=== PATIENT | female | born 1970 | race Caucasian/White ===

== ENCOUNTER 2018-10-18 09:12 | Emergency (ER) | payer BC ==
--- NOTE | 2018-10-18 09:48 | EDM.PDOC ---
ED HPI GENERAL MEDICAL PROBLEM - General Chief Complaint: Skin Complaint Stated Complaint: RASH Time Seen by Provider: 10/18/18 09:39 - History of Present Illness INITIAL COMMENTS - FREE TEXT/NARRATIVE: HISTORY AND PHYSICAL: History of present illness: Patient's 48-year-old white female presents with a concern of rash to her left thoraco abdominal area. She denies other concern Review of systems: As per history of present illness and below otherwise all systems reviewed and negative. Past medical history: As per history of present illness and as reviewed below otherwise noncontributory. Surgical history: As per history of present illness and as reviewed below otherwise noncontributory. Social history: No reported history of drug or alcohol abuse. Family history: As per history of present illness and as reviewed below otherwise noncontributory. Physical exam: HEENT: Atraumatic, normocephalic, pupils reactive, negative for conjunctival pallor or scleral icterus, mucous membranes moist, throat clear, neck supple, nontender, trachea midline. Lungs: Clear to auscultation, breath sounds equal bilaterally, chest nontender. Heart: S1S2, regular, negative for clicks, rubs, or JVD. Abdomen: Soft, nondistended, nontender. Negative for masses or hepatosplenomegaly. Negative for costovertebral tenderness. Pelvis: Stable nontender. Genitourinary: Deferred. Rectal: Deferred. Extremities: Atraumatic, negative for cords or calf pain. Neurovascular unremarkable. Neuro: Awake, alert, oriented. Cranial nerves II through XII unremarkable. Cerebellum unremarkable. Motor and sensory unremarkable throughout. Exam nonfocal. Skin: Patient has a maculopapular type rash in a dermatomal distribution in the left thoracoabdominal region without crossing of the midline consistent with shingles Diagnostics: None Therapeutics: None Impression: 1 herpes zoster Definitive disposition and diagnosis as appropriate pending reevaluation and review of above. 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 Musculoskeletal History: Reports: None Neurological History: Reports: None Psychiatric History: Reports: None Endocrine/Metabolic History: Reports: None Hematologic History: Reports: None Immunologic History: Reports: None Oncologic (Cancer) History: Reports: None Dermatologic History: Reports: None - Infectious Disease History Infectious Disease History: Reports: Chicken Pox - Past Surgical History Head Surgeries/Procedures: Reports: None Cardiovascular Surgical History: Reports: None Social & Family History - Family History Family Medical History: Noncontributory - Tobacco Use Smoking Status *Q: Never Smoker - Caffeine Use Caffeine Use: Reports: Coffee - Recreational Drug Use Recreational Drug Use: No ED ROS GENERAL - Review of Systems Review Of Systems: ROS reveals no pertinent complaints other than HPI. ED EXAM, SKIN/RASH Exam: See Below (See dictation) Course - Vital Signs Last Recorded V/S: Last Vital Signs Temp 36.6 C 10/18/18 09:41 Pulse 90 10/18/18 09:41 Resp 16 10/18/18 09:41 BP 111/71 10/18/18 09:41 Pulse Ox 95 10/18/18 09:41 Departure - Departure Time of Disposition: 09:47 Disposition: Home, Self-Care 01 Condition: Good Clinical Impression: Herpes zoster - Discharge Information Referrals: PCP,None [Primary Care Provider] - Additional Instructions: The following information is given to patients seen in the emergency department who are being discharged to home. This information is to outline your options for follow-up care. We provide all patients seen in our emergency department with a follow-up referral. The need for follow-up, as well as the timing and circumstances, are variable depending upon the specifics of your emergency department visit. If you don't have a primary care physician on staff, we will provide you with a referral. We always advise you to contact your personal physician following an emergency department visit to inform them of the circumstance of the visit and for follow-up with them and/or the need for any referrals to a consulting specialist. The emergency department will also refer you to a specialist when appropriate. This referral assures that you have the opportunity for followup care with a specialist. All of these measure are taken in an effort to provide you with optimal care, which includes your followup. Under all circumstances we always encourage you to contact your private physician who remains a resource for coordinating your care. When calling for followup care, please make the office aware that this follow-up is from your recent emergency room visit. If for any reason you are refused follow-up, please contact the [facility] emergency department at and asked to speak to the emergency department charge nurse. Valtrex hydrocodone as prescribed. Her primary medical doctor as discussed infectious precautions as discussed return as needed as discussed
== END 2018-10-18 10:15 | disposition home or self-care (01) ==
LOC: MW.ED 09:12
DX: B02.9 Zoster without complications (principal)
CPT/HCPCS: 99283

== ENCOUNTER 2019-05-24 20:59 | Observation (INO) | payer BC ==
--- NOTE | 2019-05-24 21:03 | EDM.PDOC ---
ED HPI GENERAL MEDICAL PROBLEM - General Chief Complaint: Drug or Alcohol Abuse Stated Complaint: OVERDOSE Time Seen by Provider: 05/24/19 21:03 Source of Information: Reports: Patient History Limitations: Reports: No Limitations - History of Present Illness INITIAL COMMENTS - FREE TEXT/NARRATIVE: HISTORY AND PHYSICAL: History of present illness: Patient is a 49-year-old female presents via the EMS for overdose. Per police, monty called the EMS. Officer states that patient had gotten in an argument with her fiaudrey. Monty heard her in the bathroom opening pill bottles. Patient did admit to EMS and office at scene that she had taken a bunch of olanzapine. Patient reportedly took about 32 of her olanzapine and and uncertain amount of lorazepam. Patient had also been drinking, approximately 5 12-oz cans of coors light. Per EMS patient walked to bus at scene but since has become more drowsy. Patient on my arrival was drowsy and slurring her speech initially she became more drowsy but did respond to sternal rub. Review of systems: As per history of present illness and below otherwise all systems reviewed and negative. Past medical history: As per history of present illness and as reviewed below otherwise noncontributory. Surgical history: As per history of present illness and as reviewed below otherwise noncontributory. Social history: No reported history of drug or alcohol abuse. Family history: As per history of present illness and as reviewed below otherwise noncontributory. Physical exam: General: Patient sitting comfortably in no acute distress and nontoxic appearing HEENT: Atraumatic, normocephalic, pupils reactive, negative for conjunctival pallor or scleral icterus, mucous membranes moist, throat clear, neck supple, nontender, trachea midline. No meningeal signs. Lungs: Clear to auscultation, breath sounds equal bilaterally, chest nontender. Heart: S1S2, regular, negative for clicks, rubs, or overt murmur. Abdomen: Soft, nondistended, nontender. Negative for masses or hepatosplenomegaly. Negative for costovertebral tenderness. No rigidity, rebound , guarding. Pelvis: Stable nontender. Genitourinary: Deferred. Rectal: Deferred. Extremities: Atraumatic, negative for cords or calf pain. Neurovascular unremarkable. Neuro: Awake but drowsy. Cranial nerves II through XII unremarkable. Cerebellum unremarkable. Motor and sensory unremarkable throughout. Exam nonfocal. Notes: Discussed with poison control, recommended fluids and if she desats to consider opioid ingestion and give narcan if needed. Diagnostics: CBC, CMP, UDS, UA, EtOH, acetaminophen, salicylate chest x-ray, EKG Therapeutics: 1 L normal saline IV Prescriptions: Impression: Overdose, alcohol intoxication, AMS Plan: Discussed with Dr. Irvin, patient will be admitted to observation on ICU on telemetry Definitive disposition and diagnosis as appropriate pending reevaluation and review of above. 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 Musculoskeletal History: Reports: None Neurological History: Reports: None Psychiatric History: Reports: None Endocrine/Metabolic History: Reports: None Hematologic History: Reports: None Immunologic History: Reports: None Oncologic (Cancer) History: Reports: None Dermatologic History: Reports: None - Infectious Disease History Infectious Disease History: Reports: Chicken Pox - Past Surgical History Head Surgeries/Procedures: Reports: None Cardiovascular Surgical History: Reports: None Social & Family History - Family History Family Medical History: Noncontributory - Caffeine Use Caffeine Use: Reports: Coffee ED ROS GENERAL - Review of Systems Review Of Systems: ROS reveals no pertinent complaints other than HPI. - Physical Exam Exam: See Below (See dictation) Course - Vital Signs Last Recorded V/S: Last Vital Signs Temp 97.4 F 05/24/19 21:02 Pulse 111 H 05/24/19 21:55 Resp 14 05/24/19 21:55 BP 114/88 05/24/19 21:55 Pulse Ox 99 05/24/19 21:55 - Orders/Labs/Meds Orders: Active Orders 24 hr Category Date Time Status EKG Documentation Completion [RC] STAT Care 05/24/19 21:03 Active Sodium Chloride 0.9% [Normal Saline] 1,000 ml Med 05/24/19 21:20 Active IV STAT Medication Orders Sodium Chloride (Normal Saline) 1,000 mls @ 999 mls/hr IV STAT ONE Stop: 05/24/19 22:20 Last Admin: 05/24/19 21:49 Dose: 999 mls/hr Labs: Laboratory Tests 05/24/19 05/24/19 05/24/19 Range/Units 21:18 21:18 21:22 WBC 6.91 (4.0-11.0) K/uL RBC 4.60 (4.30-5.90) M/uL Hgb 13.9 (12.0-16.0) g/dL Hct 41.8 (36.0-46.0) % MCV 90.9 (80.0-98.0) fL MCH 30.2 (27.0-32.0) pg MCHC 33.3 (31.0-37.0) g/dL RDW Std Deviation 42.5 (28.0-62.0) fl RDW Coeff of Malini 13 (11.0-15.0) % Plt Count 311 (150-400) K/uL MPV 8.80 (7.40-12.00) fL Neut % (Auto) 54.2 (48.0-80.0) % Lymph % (Auto) 40.5 H (16.0-40.0) % [place] % (Auto) 4.8 (0.0-15.0) % Eos % (Auto) 0.4 (0.0-7.0) % Baso % (Auto) 0.1 (0.0-1.5) % Neut # (Auto) 3.7 (1.4-5.7) K/uL Lymph # (Auto) 2.8 H (0.6-2.4) K/uL [place] # (Auto) 0.3 (0.0-0.8) K/uL Eos # (Auto) 0.0 (0.0-0.7) K/uL Baso # (Auto) 0.0 (0.0-0.1) K/uL Nucleated RBC % 0.0 /100WBC Nucleated RBCs # 0 K/uL Sodium 145 (136-145) mmol/L Potassium 3.4 L (3.5-5.1) mmol/L Chloride 109 H (98-107) mmol/L Carbon Dioxide 20.7 L (21.0-32.0) mmol/L BUN 5 L (7.0-18.0) mg/dL Creatinine 0.7 (0.6-1.0) mg/dL Est Cr Clr Drug Dosing TNP Estimated GFR (MDRD) > 60.0 ml/min Glucose 111 H (74-106) mg/dL Calcium 8.4 L (8.5-10.1) mg/dL Magnesium 1.9 (1.8-2.4) mg/dL Total Bilirubin 0.1 L (0.2-1.0) mg/dL AST 17 (15-37) IU/L ALT 15 (14-63) IU/L Alkaline Phosphatase 104 (46-116) U/L Total Protein 6.6 (6.4-8.2) g/dL Albumin 3.5 (3.4-5.0) g/dL Globulin 3.1 (2.6-4.0) g/dL Albumin/Globulin Ratio 1.1 (0.9-1.6) TSH 3rd Generation 1.24 (0.36-3.74) uIU/mL Urine Color YELLOW Urine Appearance CLEAR Urine pH 5.5 (5.0-8.0) Ur Specific [place] <= 1.005 (1.001-1.035) Urine Protein NEGATIVE (NEGATIVE) mg/dL Urine Glucose (UA) NEGATIVE (NEGATIVE) mg/dL Urine Ketones NEGATIVE (NEGATIVE) mg/dL Urine Occult Blood TRACE-INTACT H (NEGATIVE) Urine Nitrite NEGATIVE (NEGATIVE) Urine Bilirubin NEGATIVE (NEGATIVE) Urine Urobilinogen 0.2 (<2.0) EU/dL Ur Leukocyte Esterase NEGATIVE (NEGATIVE) Urine RBC 0-1 (0-2/HPF) Urine WBC 0-2 (0-5/HPF) Ur Epithelial Cells MODERATE (NONE-FEW) Urine Bacteria FEW (NEGATIVE) Urine HCG, Qual (NEGATIVE) Salicylates 0.8 (0-20) mg/dL Urine Opiates Screen (NEGATIVE) Ur Oxycodone Screen (NEGATIVE) Urine Methadone Screen (NEGATIVE) Acetaminophen 92.6 ug/mL Ur Barbiturates Screen (NEGATIVE) Ur Phencyclidine Scrn (NEGATIVE) Ur Amphetamine Screen (NEGATIVE) U Methamphetamines Scrn (NEGATIVE) U Benzodiazepines Scrn (NEGATIVE) U Cocaine Metab Screen (NEGATIVE) U Marijuana (THC) Screen (NEGATIVE) Ethyl Alcohol 165 mg/dL 05/24/19 05/24/19 Range/Units 21:22 21:22 WBC (4.0-11.0) K/uL RBC (4.30-5.90) M/uL Hgb (12.0-16.0) g/dL Hct (36.0-46.0) % MCV (80.0-98.0) fL MCH (27.0-32.0) pg MCHC (31.0-37.0) g/dL RDW Std Deviation (28.0-62.0) fl RDW Coeff of Malini (11.0-15.0) % Plt Count (150-400) K/uL MPV (7.40-12.00) fL Neut % (Auto) (48.0-80.0) % Lymph % (Auto) (16.0-40.0) % [place] % (Auto) (0.0-15.0) % Eos % (Auto) (0.0-7.0) % Baso % (Auto) (0.0-1.5) % Neut # (Auto) (1.4-5.7) K/uL Lymph # (Auto) (0.6-2.4) K/uL [place] # (Auto) (0.0-0.8) K/uL Eos # (Auto) (0.0-0.7) K/uL Baso # (Auto) (0.0-0.1) K/uL Nucleated RBC % /100WBC Nucleated RBCs # K/uL Sodium (136-145) mmol/L Potassium (3.5-5.1) mmol/L Chloride (98-107) mmol/L Carbon Dioxide (21.0-32.0) mmol/L BUN (7.0-18.0) mg/dL Creatinine (0.6-1.0) mg/dL Est Cr Clr Drug Dosing Estimated GFR (MDRD) ml/min Glucose (74-106) mg/dL Calcium (8.5-10.1) mg/dL Magnesium (1.8-2.4) mg/dL Total Bilirubin (0.2-1.0) mg/dL AST (15-37) IU/L ALT (14-63) IU/L Alkaline Phosphatase (46-116) U/L Total Protein (6.4-8.2) g/dL Albumin (3.4-5.0) g/dL Globulin (2.6-4.0) g/dL Albumin/Globulin Ratio (0.9-1.6) TSH 3rd Generation (0.36-3.74) uIU/mL Urine Color Urine Appearance Urine pH (5.0-8.0) Ur Specific [place] (1.001-1.035) Urine Protein (NEGATIVE) mg/dL Urine Glucose (UA) (NEGATIVE) mg/dL Urine Ketones (NEGATIVE) mg/dL Urine Occult Blood (NEGATIVE) Urine Nitrite (NEGATIVE) Urine Bilirubin (NEGATIVE) Urine Urobilinogen (<2.0) EU/dL Ur Leukocyte Esterase (NEGATIVE) Urine RBC (0-2/HPF) Urine WBC (0-5/HPF) Ur Epithelial Cells (NONE-FEW) Urine Bacteria (NEGATIVE) Urine HCG, Qual NEGATIVE (NEGATIVE) Salicylates (0-20) mg/dL Urine Opiates Screen NEGATIVE (NEGATIVE) Ur Oxycodone Screen NEGATIVE (NEGATIVE) Urine Methadone Screen NEGATIVE (NEGATIVE) Acetaminophen ug/mL Ur Barbiturates Screen NEGATIVE (NEGATIVE) Ur Phencyclidine Scrn NEGATIVE (NEGATIVE) Ur Amphetamine Screen NEGATIVE (NEGATIVE) U Methamphetamines Scrn NEGATIVE (NEGATIVE) U Benzodiazepines Scrn NEGATIVE (NEGATIVE) U Cocaine Metab Screen NEGATIVE (NEGATIVE) U Marijuana (THC) Screen NEGATIVE (NEGATIVE) Ethyl Alcohol mg/dL Meds: Medications Generic Name Dose Route Start Last Admin Trade Name Freq PRN Reason Stop Dose Admin Sodium Chloride 1,000 mls @ 999 mls/hr 05/24/19 21:20 05/24/19 21:49 Normal Saline IV 05/24/19 22:20 999 mls/hr STAT ONE Administration Departure - Departure Time of Disposition: 22:07 Disposition: Refer to Observation Condition: Good Clinical Impression: Alcohol intoxication, Altered mental status, Overdose - Discharge Information Referrals: PCP,None [Primary Care Provider] - Forms: ED Department Discharge - My Orders Last 24 Hours: My Active Orders 05/24/19 21:03 EKG Documentation Completion [RC] STAT 05/24/19 21:20 Sodium Chloride 0.9% [Normal Saline] 1,000 ml IV STAT - Assessment/Plan Last 24 Hours: My Active Orders 05/24/19 21:03 EKG Documentation Completion [RC] STAT 05/24/19 21:20 Sodium Chloride 0.9% [Normal Saline] 1,000 ml IV STAT
[2019-05-24] MEDS ORDERED: Sodium Chloride 0.9% 1,000 ML IV ONE (21:20)
[2019-05-24 21:57] LABS: BLOOD UREA NITROGEN,BUN 5 mg/dL (7.0-18.0); CARBON DIOXIDE,CO2 20.7 mmol/L (21.0-32.0); CHLORIDE,CL 109 mmol/L (98-107); GLUCOSE RANDOM 111 mg/dL (74-106); POTASSIUM,K 3.4 mmol/L (3.5-5.1); SODIUM,NA 145 mmol/L (136-145)
[2019-05-24 21:58] LABS: ACETAMINOPHEN 92.6 ug/mL
--- NOTE | 2019-05-24 23:28 | PCM.HP.2 ---
H&P History of Present Illness - General Date of Service: 05/24/19 Admit Problem/Dx: Admission Diagnosis/Problem Admission Diagnosis/Problem Alcohol intoxication - History of Present Illness Initial Comments - Free Text/Narative: 49 yo female who was brought to ED by EMS for overdose. According to ER notes patient had an argument with fiance and afterwords took olanzapine and lorazepam as well as she had been drinking. PAtient is currently lethargic. She is moving in bed but not answering questions. 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 Musculoskeletal History: Reports: None Neurological History: Reports: None Psychiatric History: Reports: None Endocrine/Metabolic History: Reports: None Hematologic History: Reports: None Immunologic History: Reports: None Oncologic (Cancer) History: Reports: None Dermatologic History: Reports: None - Infectious Disease History Infectious Disease History: Reports: Chicken Pox - Past Surgical History Head Surgeries/Procedures: Reports: None Cardiovascular Surgical History: Reports: None Social & Family History - Family History Family Medical History: Noncontributory - Caffeine Use Caffeine Use: Reports: Coffee H&P Review of Systems - Review of Systems: Review Of Systems: Unable To Obtain Exam - Exam Exam: See Below - Vital Signs Vital Signs: Last Vital Signs Temp 36.3 C 05/24/19 21:02 Pulse 83 05/24/19 22:30 Resp 15 05/24/19 22:30 BP 102/63 05/24/19 22:30 Pulse Ox 97 05/24/19 22:30 - Exam General: Lethargic HEENT: Mucosa Moist & [place] Lungs: Clear to Auscultation, Normal Respiratory Effort Cardiovascular: Regular Rate, Regular Rhythm GI/Abdominal Exam: Soft, Non-Tender Extremities: Non-Tender, No Pedal Edema Skin: Warm, Dry, Intact - Patient Data Lab Results Last 24 hrs: Laboratory Results - last 24 hr 05/24/19 05/24/19 05/24/19 Range/Units 21:18 21:18 21:22 WBC 6.91 (4.0-11.0) K/uL RBC 4.60 (4.30-5.90) M/uL Hgb 13.9 (12.0-16.0) g/dL Hct 41.8 (36.0-46.0) % MCV 90.9 (80.0-98.0) fL MCH 30.2 (27.0-32.0) pg MCHC 33.3 (31.0-37.0) g/dL RDW Std Deviation 42.5 (28.0-62.0) fl RDW Coeff of Malini 13 (11.0-15.0) % Plt Count 311 (150-400) K/uL MPV 8.80 (7.40-12.00) fL Neut % (Auto) 54.2 (48.0-80.0) % Lymph % (Auto) 40.5 H (16.0-40.0) % [place] % (Auto) 4.8 (0.0-15.0) % Eos % (Auto) 0.4 (0.0-7.0) % Baso % (Auto) 0.1 (0.0-1.5) % Neut # (Auto) 3.7 (1.4-5.7) K/uL Lymph # (Auto) 2.8 H (0.6-2.4) K/uL [place] # (Auto) 0.3 (0.0-0.8) K/uL Eos # (Auto) 0.0 (0.0-0.7) K/uL Baso # (Auto) 0.0 (0.0-0.1) K/uL Nucleated RBC % 0.0 /100WBC Nucleated RBCs # 0 K/uL Sodium 145 (136-145) mmol/L Potassium 3.4 L (3.5-5.1) mmol/L Chloride 109 H (98-107) mmol/L Carbon Dioxide 20.7 L (21.0-32.0) mmol/L BUN 5 L (7.0-18.0) mg/dL Creatinine 0.7 (0.6-1.0) mg/dL Est Cr Clr Drug Dosing TNP Estimated GFR (MDRD) > 60.0 ml/min Glucose 111 H (74-106) mg/dL Calcium 8.4 L (8.5-10.1) mg/dL Magnesium 1.9 (1.8-2.4) mg/dL Total Bilirubin 0.1 L (0.2-1.0) mg/dL AST 17 (15-37) IU/L ALT 15 (14-63) IU/L Alkaline Phosphatase 104 (46-116) U/L Total Protein 6.6 (6.4-8.2) g/dL Albumin 3.5 (3.4-5.0) g/dL Globulin 3.1 (2.6-4.0) g/dL Albumin/Globulin Ratio 1.1 (0.9-1.6) TSH 3rd Generation 1.24 (0.36-3.74) uIU/mL Urine Color YELLOW Urine Appearance CLEAR Urine pH 5.5 (5.0-8.0) Ur Specific [place] <= 1.005 (1.001-1.035) Urine Protein NEGATIVE (NEGATIVE) mg/dL Urine Glucose (UA) NEGATIVE (NEGATIVE) mg/dL Urine Ketones NEGATIVE (NEGATIVE) mg/dL Urine Occult Blood TRACE-INTACT H (NEGATIVE) Urine Nitrite NEGATIVE (NEGATIVE) Urine Bilirubin NEGATIVE (NEGATIVE) Urine Urobilinogen 0.2 (<2.0) EU/dL Ur Leukocyte Esterase NEGATIVE (NEGATIVE) Urine RBC 0-1 (0-2/HPF) Urine WBC 0-2 (0-5/HPF) Ur Epithelial Cells MODERATE (NONE-FEW) Urine Bacteria FEW (NEGATIVE) Urine HCG, Qual (NEGATIVE) Salicylates 0.8 (0-20) mg/dL Urine Opiates Screen (NEGATIVE) Ur Oxycodone Screen (NEGATIVE) Urine Methadone Screen (NEGATIVE) Acetaminophen 92.6 ug/mL Ur Barbiturates Screen (NEGATIVE) Ur Phencyclidine Scrn (NEGATIVE) Ur Amphetamine Screen (NEGATIVE) U Methamphetamines Scrn (NEGATIVE) U Benzodiazepines Scrn (NEGATIVE) U Cocaine Metab Screen (NEGATIVE) U Marijuana (THC) Screen (NEGATIVE) Ethyl Alcohol 165 mg/dL 05/24/19 05/24/19 Range/Units 21:22 21:22 WBC (4.0-11.0) K/uL RBC (4.30-5.90) M/uL Hgb (12.0-16.0) g/dL Hct (36.0-46.0) % MCV (80.0-98.0) fL MCH (27.0-32.0) pg MCHC (31.0-37.0) g/dL RDW Std Deviation (28.0-62.0) fl RDW Coeff of Malini (11.0-15.0) % Plt Count (150-400) K/uL MPV (7.40-12.00) fL Neut % (Auto) (48.0-80.0) % Lymph % (Auto) (16.0-40.0) % [place] % (Auto) (0.0-15.0) % Eos % (Auto) (0.0-7.0) % Baso % (Auto) (0.0-1.5) % Neut # (Auto) (1.4-5.7) K/uL Lymph # (Auto) (0.6-2.4) K/uL [place] # (Auto) (0.0-0.8) K/uL Eos # (Auto) (0.0-0.7) K/uL Baso # (Auto) (0.0-0.1) K/uL Nucleated RBC % /100WBC Nucleated RBCs # K/uL Sodium (136-145) mmol/L Potassium (3.5-5.1) mmol/L Chloride (98-107) mmol/L Carbon Dioxide (21.0-32.0) mmol/L BUN (7.0-18.0) mg/dL Creatinine (0.6-1.0) mg/dL Est Cr Clr Drug Dosing Estimated GFR (MDRD) ml/min Glucose (74-106) mg/dL Calcium (8.5-10.1) mg/dL Magnesium (1.8-2.4) mg/dL Total Bilirubin (0.2-1.0) mg/dL AST (15-37) IU/L ALT (14-63) IU/L Alkaline Phosphatase (46-116) U/L Total Protein (6.4-8.2) g/dL Albumin (3.4-5.0) g/dL Globulin (2.6-4.0) g/dL Albumin/Globulin Ratio (0.9-1.6) TSH 3rd Generation (0.36-3.74) uIU/mL Urine Color Urine Appearance Urine pH (5.0-8.0) Ur Specific [place] (1.001-1.035) Urine Protein (NEGATIVE) mg/dL Urine Glucose (UA) (NEGATIVE) mg/dL Urine Ketones (NEGATIVE) mg/dL Urine Occult Blood (NEGATIVE) Urine Nitrite (NEGATIVE) Urine Bilirubin (NEGATIVE) Urine Urobilinogen (<2.0) EU/dL Ur Leukocyte Esterase (NEGATIVE) Urine RBC (0-2/HPF) Urine WBC (0-5/HPF) Ur Epithelial Cells (NONE-FEW) Urine Bacteria (NEGATIVE) Urine HCG, Qual NEGATIVE (NEGATIVE) Salicylates (0-20) mg/dL Urine Opiates Screen NEGATIVE (NEGATIVE) Ur Oxycodone Screen NEGATIVE (NEGATIVE) Urine Methadone Screen NEGATIVE (NEGATIVE) Acetaminophen ug/mL Ur Barbiturates Screen NEGATIVE (NEGATIVE) Ur Phencyclidine Scrn NEGATIVE (NEGATIVE) Ur Amphetamine Screen NEGATIVE (NEGATIVE) U Methamphetamines Scrn NEGATIVE (NEGATIVE) U Benzodiazepines Scrn NEGATIVE (NEGATIVE) U Cocaine Metab Screen NEGATIVE (NEGATIVE) U Marijuana (THC) Screen NEGATIVE (NEGATIVE) Ethyl Alcohol mg/dL Result Diagrams: 05/25/19 06:33 05/25/19 06:33 Problem List Initiated/Reviewed/Updated: Yes Orders Last 24hrs: Active Orders 24 hr Category Date Time Status Admission Status [Patient Status] [ADT] Stat ADT 05/24/19 22:09 Active EKG Documentation Completion [RC] STAT Care 05/24/19 21:03 Active Assessment/Plan Comment:: 49 yo female admitted for drug overdose. We will continue to monitor overnight and treat supportively. We will consult telepsych when patient is more alert.
[2019-05-24] MEDS: Sodium Chloride 0.9% 1,000 ML IV SCH (23:54)
[2019-05-25] MEDS ORDERED: Acetylcysteine 20% 200 MG/ML 30 ML SDV IV ONE (00:26)
[2019-05-25] MEDS ORDERED: Acetylcysteine 10,000 MG in Dextrose 5% in Water 200 ML IV ONE ×2 (01:00)
[2019-05-25] MEDS ORDERED: DEXTROSE 5% IV ONE ×6 (01:15→06:00)
[2019-05-25] MEDS ORDERED: WATER IV ONE ×6 (01:15→06:00)
[2019-05-25] MEDS ORDERED: ACETYLCYSTEINE IV ONE ×6 (01:15→06:00)
[2019-05-25] MEDS ORDERED: Acetylcysteine 20% 200 MG/ML 30 ML SDV IV SCH ×2 (01:45→05:45)
[2019-05-25 06:59] LABS: BLOOD UREA NITROGEN,BUN 5 mg/dL (7.0-18.0); CARBON DIOXIDE,CO2 20.8 mmol/L (21.0-32.0); CHLORIDE,CL 108 mmol/L (98-107); GLUCOSE RANDOM 124 mg/dL (74-106); POTASSIUM,K 4.1 mmol/L (3.5-5.1); SODIUM,NA 145 mmol/L (136-145)
--- NOTE | 2019-05-25 07:45 | PN ---
THC Physician - Brief Progress [id number]/01/2019 23:50[facility] [place] child, [place] - YARELYN (GENESISN) - SHARONA BHATTNADEEM DuarteAce of Service 05/24/2019 23:50HPI/Events of N ote Chart reviewed and case d/w bedside RN. On camera, the patient is asleep, appears in NAD. Mrs Camden hung is a 49 yr old lady presenting after an intentional overdose on Olanzapine, Ativan around 20:30 an d has been drinking alcohol. She is sleepy but arousable. PMH: VZV in 09/2018.investigations reviewed - pertinent: K 3.4, bicarb 21, LFTs unremarkable, CBC unremarkable.ASA normal. Tylenol level 92.6 ET OH 165.A/P:Intentional medication OD.Case was discussed by bedside RN with poison control. Due to unk nown time of ingestion of TYlenol (patient does not report taking it, so unknown whether she may have taken it at a previous time), ordered NAC regimen. Repeat Tylenol level and LFTs once NAC infusions comleted.Follow neuuro status and respiratory status.Psych eval when medically cleared.GI/DVT prophyl axis.Interventions Intermediate-Other: Intentional medication overdose
[2019-05-25] MEDS: Sodium Chloride 0.9% 1,000 ML IV SCH ×2 (08:09→16:36)
--- NOTE | 2019-05-25 08:17 | PCM.PN ---
- General Info Date of Service: 05/25/19 Subjective Update: Seen at bedside; vacillating between agitation and somnolence. When asked direct questions about intentional overdose; denies suicidal ideation; states it 's more of a "attention" from her kristy issue. Otherwise denies any pain, shortness of breath. Denies any suicidal/homicidal ideation. Denies previous attempts in the past. Otherwise has no new complaints. Patient denies any concrete psychiatric diagnoses; was initially evaluated in [place], [place]; cannot recall actual diagnoses; was placed on olanzapine. Was seen in the ED multiple times in previous weeks for increasing anxiety; initially refilled with olanzapine. Last refill of Ativan January 2019; not seen on urine tox screen. Spoke to kristy this morning: States after getting into an argument; she went into the bathroom and took her "anxiety" medications; police was called; pill count showed possibly 10-15 pills missing. Proceed to emergency department. Kristy unaware of any psychiatric diagnoses besides anxiety. - Review of Systems General: Reports: No Symptoms HEENT: Reports: No Symptoms Pulmonary: Reports: No Symptoms Cardiovascular: Reports: No Symptoms Gastrointestinal: Reports: No Symptoms Musculoskeletal: Reports: No Symptoms Neurological: Reports: No Symptoms Psychiatric: Reports: Confusion, Mood Lability, Anxiety, Agitation - Patient Data Vitals - Most Recent: Last Vital Signs Temp 98.7 F 05/25/19 07:00 Pulse 82 05/25/19 01:00 Resp 16 05/25/19 07:00 BP 152/88 H 05/25/19 07:00 Pulse Ox 97 05/25/19 07:00 Weight - Most Recent: 147 lb 7.828 oz I&O - Last 24 Hours: Intake & Output 05/24/19 05/25/19 05/25/19 22:59 06:59 14:59 Intake Total 1053 Output Total 400 Balance 653 Lab Results Last 24 Hours: Laboratory Results - last 24 hr 05/24/19 05/24/19 05/24/19 Range/Units 21:18 21:18 21:22 WBC 6.91 (4.0-11.0) K/uL RBC 4.60 (4.30-5.90) M/uL Hgb 13.9 (12.0-16.0) g/dL Hct 41.8 (36.0-46.0) % MCV 90.9 (80.0-98.0) fL MCH 30.2 (27.0-32.0) pg MCHC 33.3 (31.0-37.0) g/dL RDW Std Deviation 42.5 (28.0-62.0) fl RDW Coeff of Malini 13 (11.0-15.0) % Plt Count 311 (150-400) K/uL MPV 8.80 (7.40-12.00) fL Neut % (Auto) 54.2 (48.0-80.0) % Lymph % (Auto) 40.5 H (16.0-40.0) % [place] % (Auto) 4.8 (0.0-15.0) % Eos % (Auto) 0.4 (0.0-7.0) % Baso % (Auto) 0.1 (0.0-1.5) % Neut # (Auto) 3.7 (1.4-5.7) K/uL Lymph # (Auto) 2.8 H (0.6-2.4) K/uL [place] # (Auto) 0.3 (0.0-0.8) K/uL Eos # (Auto) 0.0 (0.0-0.7) K/uL Baso # (Auto) 0.0 (0.0-0.1) K/uL Nucleated RBC % 0.0 /100WBC Nucleated RBCs # 0 K/uL Sodium 145 (136-145) mmol/L Potassium 3.4 L (3.5-5.1) mmol/L Chloride 109 H (98-107) mmol/L Carbon Dioxide 20.7 L (21.0-32.0) mmol/L BUN 5 L (7.0-18.0) mg/dL Creatinine 0.7 (0.6-1.0) mg/dL Est Cr Clr Drug Dosing TNP Estimated GFR (MDRD) > 60.0 ml/min Glucose 111 H (74-106) mg/dL Calcium 8.4 L (8.5-10.1) mg/dL Magnesium 1.9 (1.8-2.4) mg/dL Total Bilirubin 0.1 L (0.2-1.0) mg/dL AST 17 (15-37) IU/L ALT 15 (14-63) IU/L Alkaline Phosphatase 104 (46-116) U/L Total Protein 6.6 (6.4-8.2) g/dL Albumin 3.5 (3.4-5.0) g/dL Globulin 3.1 (2.6-4.0) g/dL Albumin/Globulin Ratio 1.1 (0.9-1.6) TSH 3rd Generation 1.24 (0.36-3.74) uIU/mL Urine Color YELLOW Urine Appearance CLEAR Urine pH 5.5 (5.0-8.0) Ur Specific [place] <= 1.005 (1.001-1.035) Urine Protein NEGATIVE (NEGATIVE) mg/dL Urine Glucose (UA) NEGATIVE (NEGATIVE) mg/dL Urine Ketones NEGATIVE (NEGATIVE) mg/dL Urine Occult Blood TRACE-INTACT H (NEGATIVE) Urine Nitrite NEGATIVE (NEGATIVE) Urine Bilirubin NEGATIVE (NEGATIVE) Urine Urobilinogen 0.2 (<2.0) EU/dL Ur Leukocyte Esterase NEGATIVE (NEGATIVE) Urine RBC 0-1 (0-2/HPF) Urine WBC 0-2 (0-5/HPF) Ur Epithelial Cells MODERATE (NONE-FEW) Urine Bacteria FEW (NEGATIVE) Urine HCG, Qual (NEGATIVE) Salicylates 0.8 (0-20) mg/dL Urine Opiates Screen (NEGATIVE) Ur Oxycodone Screen (NEGATIVE) Urine Methadone Screen (NEGATIVE) Acetaminophen 92.6 ug/mL Ur Barbiturates Screen (NEGATIVE) Ur Phencyclidine Scrn (NEGATIVE) Ur Amphetamine Screen (NEGATIVE) U Methamphetamines Scrn (NEGATIVE) U Benzodiazepines Scrn (NEGATIVE) U Cocaine Metab Screen (NEGATIVE) U Marijuana (THC) Screen (NEGATIVE) Ethyl Alcohol 165 mg/dL 05/24/19 05/24/19 05/25/19 Range/Units 21:22 21:22 06:33 WBC 9.76 (4.0-11.0) K/uL RBC 4.57 (4.30-5.90) M/uL Hgb 14.0 (12.0-16.0) g/dL Hct 41.2 (36.0-46.0) % MCV 90.2 (80.0-98.0) fL MCH 30.6 (27.0-32.0) pg MCHC 34.0 (31.0-37.0) g/dL RDW Std Deviation 42.1 (28.0-62.0) fl RDW Coeff of Malini 13 (11.0-15.0) % Plt Count 359 (150-400) K/uL MPV 9.30 (7.40-12.00) fL Neut % (Auto) 75.4 (48.0-80.0) % Lymph % (Auto) 16.8 (16.0-40.0) % [place] % (Auto) 7.5 (0.0-15.0) % Eos % (Auto) 0.1 (0.0-7.0) % Baso % (Auto) 0.2 (0.0-1.5) % Neut # (Auto) 7.4 H (1.4-5.7) K/uL Lymph # (Auto) 1.6 (0.6-2.4) K/uL [place] # (Auto) 0.7 (0.0-0.8) K/uL Eos # (Auto) 0.0 (0.0-0.7) K/uL Baso # (Auto) 0.0 (0.0-0.1) K/uL Nucleated RBC % 0.0 /100WBC Nucleated RBCs # 0 K/uL Sodium (136-145) mmol/L Potassium (3.5-5.1) mmol/L Chloride (98-107) mmol/L Carbon Dioxide (21.0-32.0) mmol/L BUN (7.0-18.0) mg/dL Creatinine (0.6-1.0) mg/dL Est Cr Clr Drug Dosing Estimated GFR (MDRD) ml/min Glucose (74-106) mg/dL Calcium (8.5-10.1) mg/dL Magnesium (1.8-2.4) mg/dL Total Bilirubin (0.2-1.0) mg/dL AST (15-37) IU/L ALT (14-63) IU/L Alkaline Phosphatase (46-116) U/L Total Protein (6.4-8.2) g/dL Albumin (3.4-5.0) g/dL Globulin (2.6-4.0) g/dL Albumin/Globulin Ratio (0.9-1.6) TSH 3rd Generation (0.36-3.74) uIU/mL Urine Color Urine Appearance Urine pH (5.0-8.0) Ur Specific [place] (1.001-1.035) Urine Protein (NEGATIVE) mg/dL Urine Glucose (UA) (NEGATIVE) mg/dL Urine Ketones (NEGATIVE) mg/dL Urine Occult Blood (NEGATIVE) Urine Nitrite (NEGATIVE) Urine Bilirubin (NEGATIVE) Urine Urobilinogen (<2.0) EU/dL Ur Leukocyte Esterase (NEGATIVE) Urine RBC (0-2/HPF) Urine WBC (0-5/HPF) Ur Epithelial Cells (NONE-FEW) Urine Bacteria (NEGATIVE) Urine HCG, Qual NEGATIVE (NEGATIVE) Salicylates (0-20) mg/dL Urine Opiates Screen NEGATIVE (NEGATIVE) Ur Oxycodone Screen NEGATIVE (NEGATIVE) Urine Methadone Screen NEGATIVE (NEGATIVE) Acetaminophen ug/mL Ur Barbiturates Screen NEGATIVE (NEGATIVE) Ur Phencyclidine Scrn NEGATIVE (NEGATIVE) Ur Amphetamine Screen NEGATIVE (NEGATIVE) U Methamphetamines Scrn NEGATIVE (NEGATIVE) U Benzodiazepines Scrn NEGATIVE (NEGATIVE) U Cocaine Metab Screen NEGATIVE (NEGATIVE) U Marijuana (THC) Screen NEGATIVE (NEGATIVE) Ethyl Alcohol mg/dL 05/25/19 Range/Units 06:33 WBC (4.0-11.0) K/uL RBC (4.30-5.90) M/uL Hgb (12.0-16.0) g/dL Hct (36.0-46.0) % MCV (80.0-98.0) fL MCH (27.0-32.0) pg MCHC (31.0-37.0) g/dL RDW Std Deviation (28.0-62.0) fl RDW Coeff of Malini (11.0-15.0) % Plt Count (150-400) K/uL MPV (7.40-12.00) fL Neut % (Auto) (48.0-80.0) % Lymph % (Auto) (16.0-40.0) % [place] % (Auto) (0.0-15.0) % Eos % (Auto) (0.0-7.0) % Baso % (Auto) (0.0-1.5) % Neut # (Auto) (1.4-5.7) K/uL Lymph # (Auto) (0.6-2.4) K/uL [place] # (Auto) (0.0-0.8) K/uL Eos # (Auto) (0.0-0.7) K/uL Baso # (Auto) (0.0-0.1) K/uL Nucleated RBC % /100WBC Nucleated RBCs # K/uL Sodium 145 (136-145) mmol/L Potassium 4.1 (3.5-5.1) mmol/L Chloride 108 H (98-107) mmol/L Carbon Dioxide 20.8 L (21.0-32.0) mmol/L BUN 5 L (7.0-18.0) mg/dL Creatinine 0.7 (0.6-1.0) mg/dL Est Cr Clr Drug Dosing TNP Estimated GFR (MDRD) > 60.0 ml/min Glucose 124 H (74-106) mg/dL Calcium 8.6 (8.5-10.1) mg/dL Magnesium (1.8-2.4) mg/dL Total Bilirubin 0.2 (0.2-1.0) mg/dL AST 15 (15-37) IU/L ALT 20 (14-63) IU/L Alkaline Phosphatase 94 (46-116) U/L Total Protein 6.5 (6.4-8.2) g/dL Albumin 3.2 L (3.4-5.0) g/dL Globulin 3.3 (2.6-4.0) g/dL Albumin/Globulin Ratio 1.0 (0.9-1.6) TSH 3rd Generation (0.36-3.74) uIU/mL Urine Color Urine Appearance Urine pH (5.0-8.0) Ur Specific [place] (1.001-1.035) Urine Protein (NEGATIVE) mg/dL Urine Glucose (UA) (NEGATIVE) mg/dL Urine Ketones (NEGATIVE) mg/dL Urine Occult Blood (NEGATIVE) Urine Nitrite (NEGATIVE) Urine Bilirubin (NEGATIVE) Urine Urobilinogen (<2.0) EU/dL Ur Leukocyte Esterase (NEGATIVE) Urine RBC (0-2/HPF) Urine WBC (0-5/HPF) Ur Epithelial Cells (NONE-FEW) Urine Bacteria (NEGATIVE) Urine HCG, Qual (NEGATIVE) Salicylates (0-20) mg/dL Urine Opiates Screen (NEGATIVE) Ur Oxycodone Screen (NEGATIVE) Urine Methadone Screen (NEGATIVE) Acetaminophen ug/mL Ur Barbiturates Screen (NEGATIVE) Ur Phencyclidine Scrn (NEGATIVE) Ur Amphetamine Screen (NEGATIVE) U Methamphetamines Scrn (NEGATIVE) U Benzodiazepines Scrn (NEGATIVE) U Cocaine Metab Screen (NEGATIVE) U Marijuana (THC) Screen (NEGATIVE) Ethyl Alcohol mg/dL Med Orders - Current: Current Medications Sodium Chloride (Normal Saline) 1,000 mls @ 125 mls/hr IV ASDIRECTED [facility] Last Admin: 05/25/19 08:09 Dose: 125 mls/hr Acetylcysteine 6,700 mg/ (Dextrose/Water) 1,033.5 mls @ 64.594 mls/hr IV ONETIME ONE Stop: 05/25/19 21:59 Last Admin: 05/25/19 07:09 Dose: 64.594 mls/hr Discontinued Medications Acetylcysteine (Acetadote 20%) 10,000 mg IV ONETIME ONE Stop: 05/25/19 00:27 Last Admin: 05/25/19 01:54 Dose: Not Given Acetylcysteine (Acetadote 20%) 827 mg IV Q1H [facility] Stop: 05/25/19 04:46 Last Admin: 05/25/19 01:54 Dose: Not Given Acetylcysteine (Acetadote 20%) 418 mg IV Q1H [facility] Stop: 05/25/19 20:46 Sodium Chloride (Normal Saline) 1,000 mls @ 999 mls/hr IV STAT ONE Stop: 05/24/19 22:20 Last Admin: 05/24/19 21:49 Dose: 999 mls/hr Acetylcysteine 10,000 mg/ (Dextrose/Water) 250 mls @ 250 mls/hr IV ONETIME ONE Stop: 05/25/19 01:59 Last Admin: 05/25/19 01:46 Dose: 250 mls/hr Acetylcysteine 3,350 mg/ (Dextrose/Water) 516.75 mls @ 129.188 mls/hr IV ONETIME ONE Stop: 05/25/19 05:59 Last Admin: 05/25/19 02:53 Dose: 129.188 mls/hr Acetylcysteine 6,700 mg/ (Dextrose/Water) 1,033.5 mls @ 64.594 mls/hr IV ONETIME ONE Stop: 05/25/19 17:14 Last Admin: 05/25/19 01:54 Dose: Not Given - Exam General: Alert, Oriented, Cooperative, Mild Distress, Lethargic HEENT: Pupils Equal, EOMI, Other (dry oral mucosa) Neck: Supple Lungs: Clear to Auscultation, Normal Respiratory Effort Cardiovascular: Regular Rhythm, Tachycardia GI/Abdominal Exam: Normal Bowel Sounds, Soft, Non-Tender Back Exam: Full Range of Motion Extremities: Normal Range of Motion, Non-Tender Skin: Warm, Dry, Intact Psy/Mental Status: Alert, Anxious, Other (Increasingly lethargic; fell asleep during questioning; woke up and talked about her fianc ;nonaggressive.) - Problem List Review Problem List Initiated/Reviewed/Updated: Yes - Assessment Assessment:: Assessment: 1. Intentional overdose of psychiatric medication/most likely olanzapine and Tylenol 2. Mood disorder/unspecified psychiatric disorder' 3. Alcohol withdrawal Plan: 1. Continue N-acetylcysteine regimen; recheck Tylenol level at 3 PM this afternoon; if still elevated will continue N-acetylcysteine regimen for additional 12 hours. 2. Tele-psych consult: We'll contact Dr. Hawkins today; however recommending for consult for tomorrow secondary to patient acutely agitated with interval somnolence. 3. Continue telemetry and supportive care 4. CIWAA protocol/with Ativan. We'll adjust accordingly. 5. Thiamine/folate+ multivitamin supplementation daily. 5. CBC, CMP in a.m. - Plan Plan:: Assessment: 1.
--- NOTE | 2019-05-25 10:03 | PN ---
THC Physician - Brief Progress [id number]/02/2019 10:01[facility] Claire child, GINA - SHARONA (SHERLYN) - SHARONA BHATTNADEEM DuarteAce of Service 05/25/2019 10:01HPI/Events of N ote EICU progress note:49-year-old female admitted with intentional overdose found to have an elevate d Tylenol level and placed on NAC.On video screen monitor exam:49-year-old female no acute distress r esting comfortably on her side in bed with the family member holding her handVital signs: Heart rate 78 respiratory rate 17 SPO2 95% blood pressure 153/96EICU assessment/plan:Intentional overdose with T ylenol substanceSuicidal ideationAlcohol abuseOther psychiatric illnessesContinue and finish NAC prot ocol with follow-up Tylenol liver labsDaily labsSuicide precautionsPsychiatric inputGI DVT prophylaxi sPlease call with any changes/recommendations that are neededDiscussed with bedside nursing staff no needs or wants at this current time.Interventions Minor-Communication with other healthcare providers and/or family, Routine modifications to care plan (e.g. PRN medications for pain, fever)Electronical ly Signed by: LESLIE LANGFORD) on 05/25/2019 10:03
[2019-05-25] MEDS: LORazepam 1 MG Tab PO PRN ×2 (10:49→14:51)
[2019-05-25] MEDS: LORazepam 2 MG/ML SDV IVPUSH PRN ×2 (16:16→17:02)
[2019-05-25] MEDS ORDERED: Folic Acid 1 MG Tab PO ONE (16:30)
[2019-05-25] MEDS ORDERED: Thiamine 100 MG Tab PO ONE (16:30)
[2019-05-25] MEDS ORDERED: Haloperidol Lactate 5 MG/ML SDV IM STA (17:03)
[2019-05-25] MEDS ORDERED: chlordiazePOXIDE 10 MG Cap PO PRN (20:52)
[2019-05-25] MEDS ORDERED: LORazepam 2 MG/ML SDV IVPUSH PRN (21:00)
[2019-05-25] MEDS ORDERED: Thiamine 100 MG Tab PO SCH (21:00)
[2019-05-25] MEDS ORDERED: Folic Acid 1 MG Tab PO SCH (21:00)
--- NOTE | 2019-05-25 21:01 | PN ---
THC Physician - Brief Progress [id number]/02/2019 20:59[facility] Claire child, GINA - SHARONA (SHERLYN) - SHARONA LILIYA HOPErubi of Service 05/25/2019 20:59HPI/Events of N ote A 49-year-old female was admitted to the ICU because of olanzapine overdose, questionable Tylenol overdose and alcohol abuse. Patient is going through alcohol withdrawal and on Ativan as per CIWA p rotocol. Precedex is not available at this facility, so ordered Librium 10 mg twice daily to maintain the baseline.Interventions Major-Delirium, psychosis, severe agitation - evaluation and managementIn termediate-Communication with other healthcare providers and/or family, Medication change / dose adju stment
[2019-05-25 22:32] LABS: ACETAMINOPHEN 2.4 ug/mL
[2019-05-25 22:38] LABS: BILIRUBIN INDIRECT 0.31
[2019-05-26] MEDS: Sodium Chloride 0.9% 1,000 ML IV SCH ×3 (01:37→17:34)
[2019-05-26 06:59] LABS: BLOOD UREA NITROGEN,BUN 3 mg/dL (7.0-18.0); CARBON DIOXIDE,CO2 21.5 mmol/L (21.0-32.0); CHLORIDE,CL 115 mmol/L (98-107); GLUCOSE RANDOM 83 mg/dL (74-106); POTASSIUM,K 3.7 mmol/L (3.5-5.1); SODIUM,NA 146 mmol/L (136-145)
--- NOTE | 2019-05-26 08:45 | PN ---
PHILIP Physician - Brief Progress [id number]/03/2019 08:39[facility] Claire child, [place] - SHARONA (SHERLYN) - SHARONA BHATTNAEDEM DuarteAce of Service 05/26/2019 08:39HPI/Events of N fermine EICU progress note:49-year-old female with intentional overdose being treated for elevated Tyleno l level as well.On video screen monitor exam:49-year-old female sitting up in bed in no acute distres s eating breakfast with sitter at bedsideVital signs: Heart rate 105, respiratory rate 22, blood pres sure 103/61AST and ALT of remain low.INR is 1.04 normalOvernight patient started having symptoms of a lcohol withdrawal. Would suggest increasing Librium to 4 times a day at 20 mg if necessary.EICU asse ssment:Drug overdose intentional in natureElevated Tylenol levels now resolved with no elevation of l iver labsAlcohol withdrawal symptoms secondary to alcohol abuse.Mild hypernatremiaeICU recommendation s:Monitor patient's free water intake we will give patient 1 glass or 250 cc of free water every 2-3 hoursIf patient is symptomatic from alcohol withdrawal would increase Librium to 2025 mg p.o. 3 times daily to 4 times daily.Start ambulating patient is patient is on no DVT prophylaxis patient should w ear SCDs while in bedPsych input and consultationSuicide precautionsPlease call with any changes/claudette mmendations that are neededInterventions Minor-Communication with other healthcare providers and/or f dana, Routine modifications to care plan (e.g. PRN medications for pain, fever)
--- NOTE | 2019-05-26 11:58 | PCM.PN ---
<Princess Slater - Last Filed: 05/26/19 11:51> - General Info Date of Service: 05/26/19 Subjective Update: bedside a.m.: patient seen at bedside. Patient is more compliant, able to have full conversation with full sentences. Has insight into why she is admitted. States she understands that she may be transferred to inpatient psychiatry. Librium 10 mg twice a day started per eICU recommendations; patient tolerating well. NAC regimen completed after Tylenol levels returned to normal. One episode of agitation last night; short-term control with Haldol. Patient otherwise stable currently. Has no other complaints except for a mild headache. Also states she slept well last night. Requesting breakfast. - Patient Data Vitals - Most Recent: Last Vital Signs Temp 97.7 F 05/26/19 08:00 Pulse 80 05/25/19 13:00 Resp 15 05/26/19 10:00 BP 93/62 05/26/19 10:00 Pulse Ox 95 05/26/19 10:00 Weight - Most Recent: 66.3 kg I&O - Last 24 Hours: Intake & Output 05/25/19 05/26/19 05/26/19 22:59 06:59 14:59 Intake Total 1358 1083 Output Total 2100 300 Balance -742 783 Lab Results Last 24 Hours: Laboratory Results - last 24 hr 05/25/19 05/25/19 05/25/19 Range/Units 15:19 22:02 22:02 INR 1.09 Sodium (136-145) mmol/L Potassium (3.5-5.1) mmol/L Chloride (98-107) mmol/L Carbon Dioxide (21.0-32.0) mmol/L BUN (7.0-18.0) mg/dL Creatinine (0.6-1.0) mg/dL Est Cr Clr Drug Dosing mL/min Estimated GFR (MDRD) ml/min Glucose (74-106) mg/dL Calcium (8.5-10.1) mg/dL Total Bilirubin 0.4 (0.2-1.0) mg/dL Direct Bilirubin 0.09 (0.0-0.5) mg/dL Indirect Bilirubin 0.31 AST 15 (15-37) IU/L ALT 16 (14-63) IU/L Alkaline Phosphatase 80 (46-116) U/L Total Protein 5.5 L (6.4-8.2) g/dL Albumin 2.7 L (3.4-5.0) g/dL Globulin 2.8 (2.6-4.0) g/dL Albumin/Globulin Ratio 1.0 (0.9-1.6) Acetaminophen < 2.0 2.4 ug/mL 05/26/19 05/26/19 Range/Units 05:53 05:53 INR 1.04 Sodium 146 H (136-145) mmol/L Potassium 3.7 (3.5-5.1) mmol/L Chloride 115 H (98-107) mmol/L Carbon Dioxide 21.5 (21.0-32.0) mmol/L BUN 3 L (7.0-18.0) mg/dL Creatinine 0.6 (0.6-1.0) mg/dL Est Cr Clr Drug Dosing 111.51 mL/min Estimated GFR (MDRD) > 60.0 ml/min Glucose 83 (74-106) mg/dL Calcium 8.3 L (8.5-10.1) mg/dL Total Bilirubin 0.4 (0.2-1.0) mg/dL Direct Bilirubin (0.0-0.5) mg/dL Indirect Bilirubin AST 15 (15-37) IU/L ALT 18 (14-63) IU/L Alkaline Phosphatase 75 (46-116) U/L Total Protein 5.1 L (6.4-8.2) g/dL Albumin 2.5 L (3.4-5.0) g/dL Globulin 2.6 (2.6-4.0) g/dL Albumin/Globulin Ratio 1.0 (0.9-1.6) Acetaminophen ug/mL Med Orders - Current: Current Medications Chlordiazepoxide HCl (Librium) 10 mg PO BID PRN PRN Reason: Agitation Last Admin: 05/26/19 01:37 Dose: 10 mg Folic Acid (Folic Acid) 1 mg PO BEDTIME ERNST Sodium Chloride (Normal Saline) 1,000 mls @ 125 mls/hr IV ASDIRECTED ERNST Last Admin: 05/26/19 09:37 Dose: 125 mls/hr Lorazepam (Ativan) 0 mg PO Q4H PRN; Protocol PRN Reason: Withdrawal Symptoms Last Admin: 05/25/19 14:51 Dose: 1 mg Lorazepam (Ativan) 0 mg IVPUSH ASDIRECTED PRN; Protocol PRN Reason: Withdrawal Symptoms Last Admin: 05/25/19 20:32 Dose: 2 mg Thiamine HCl (Vitamin B-1) 100 mg PO BEDTIME ERNST Discontinued Medications Acetylcysteine (Acetadote 20%) 10,000 mg IV ONETIME ONE Stop: 05/25/19 00:27 Last Admin: 05/25/19 01:54 Dose: Not Given Acetylcysteine (Acetadote 20%) 827 mg IV Q1H ERNST Stop: 05/25/19 04:46 Last Admin: 05/25/19 01:54 Dose: Not Given Acetylcysteine (Acetadote 20%) 418 mg IV Q1H ERNST Stop: 05/25/19 20:46 Chlordiazepoxide HCl (Librium) 10 mg PO BID PRN PRN Reason: Agitation Folic Acid (Folic Acid) 1 mg PO BEDTIME ERNST Folic Acid (Folic Acid) 1 mg PO ONETIME ONE Stop: 05/25/19 16:31 Last Admin: 05/25/19 16:30 Dose: 1 mg Haloperidol Lactate (Haldol) 2 mg IM ONETIME STA Stop: 05/25/19 17:04 Last Admin: 05/25/19 17:34 Dose: 2 mg Sodium Chloride (Normal Saline) 1,000 mls @ 999 mls/hr IV STAT ONE Stop: 05/24/19 22:20 Last Admin: 05/24/19 21:49 Dose: 999 mls/hr Acetylcysteine 10,000 mg/ (Dextrose/Water) 250 mls @ 250 mls/hr IV ONETIME ONE Stop: 05/25/19 01:59 Last Admin: 05/25/19 01:46 Dose: 250 mls/hr Acetylcysteine 3,350 mg/ (Dextrose/Water) 516.75 mls @ 129.188 mls/hr IV ONETIME ONE Stop: 05/25/19 05:59 Last Admin: 05/25/19 02:53 Dose: 129.188 mls/hr Acetylcysteine 6,700 mg/ (Dextrose/Water) 1,033.5 mls @ 64.594 mls/hr IV ONETIME ONE Stop: 05/25/19 17:14 Last Admin: 05/25/19 01:54 Dose: Not Given Acetylcysteine 6,700 mg/ (Dextrose/Water) 1,033.5 mls @ 64.594 mls/hr IV ONETIME ONE Stop: 05/25/19 21:59 Last Admin: 05/25/19 07:09 Dose: 64.594 mls/hr Lorazepam (Ativan) 0 mg IVPUSH Q4H PRN; Protocol PRN Reason: Withdrawal Symptoms Last Admin: 05/25/19 17:02 Dose: 2 mg Thiamine HCl (Vitamin B-1) 100 mg PO BEDTIME ERNST Thiamine HCl (Vitamin B-1) 100 mg PO ONETIME ONE Stop: 05/25/19 16:31 Last Admin: 05/25/19 16:30 Dose: 100 mg - Exam General: Alert, Oriented HEENT: EOMI Lungs: Clear to Auscultation, Normal Respiratory Effort Cardiovascular: Regular Rhythm, Tachycardia GI/Abdominal Exam: Soft, Non-Tender Skin: Warm, Dry, Intact Neurological: No New Focal Deficit Psy/Mental Status: Alert, Normal Affect, Depressed (does not endorse any active suicidal or homicidal ideation at this time; appears tired but cooperative. Fianc at bedside.). No: Suicidal Ideation, Homicidal Ideation - Problem List & Annotations (1) Altered mental status SNOMED Code(s): 099502589 Code(s): R41.82 - ALTERED MENTAL STATUS, UNSPECIFIED Status: Acute Current Visit: Yes (2) Overdose SNOMED Code(s): 63877066 Code(s): T50.901A - POISONING BY UNSP DRUG/MEDS/BIOL SUBST, ACCIDENTAL, INIT Status: Acute Current Visit: Yes (3) Anxiety SNOMED Code(s): 88536215 Code(s): F41.9 - ANXIETY DISORDER, UNSPECIFIED Status: Acute Current Visit: No (4) Depression SNOMED Code(s): 35612293 Code(s): F32.9 - MAJOR DEPRESSIVE DISORDER, SINGLE EPISODE, UNSPECIFIED Status: Acute Current Visit: No Qualifiers: Depression Type: unspecified Qualified Code(s): F32.9 - Major depressive disorder, single episode, unspecified - Problem List Review Problem List Initiated/Reviewed/Updated: Yes - Assessment Assessment:: Assessment: 1. Intentional overdose of psychiatric medication/most likely olanzapine and Tylenol 2. Mood disorder/unspecified psychiatric disorder' 3. Alcohol withdrawal Plan: 2. Tele-psych consult: awaiting recommendations; patient will possibly transferred to inpatient psychiatry; awaiting open beds at other facilities. 3. Continue telemetry and supportive care 4. CIWAA protocol/with Ativan. per eICU: Librium 10 mg twice a day continued: patient responding well to new medication 5. Thiamine/folate+ multivitamin supplementation daily. 5. CBC, CMP in a.m. <NayeliTrevorJonny - Last Filed: 05/26/19 12:57> - General Info Admission Dx/Problem (Free Text): I have seen and examined the patient independently of Dr. Bryon MD. I have reviewed and agree with the plan of care as outlined for this patient by him. I have discussed the case with him. Please see orders. - Patient Data Vitals - Most Recent: Last Vital Signs Temp 36.7 C 05/26/19 12:00 Pulse 80 05/25/19 13:00 Resp 17 05/26/19 12:00 BP 99/65 05/26/19 12:00 Pulse Ox 95 05/26/19 12:00 I&O - Last 24 Hours: Intake & Output 05/25/19 05/26/19 05/26/19 22:59 06:59 14:59 Intake Total 1358 1083 Output Total 2100 300 Balance -742 783 Lab Results Last 24 Hours: Laboratory Results - last 24 hr 05/25/19 05/25/19 05/25/19 Range/Units 15:19 22:02 22:02 INR 1.09 Sodium (136-145) mmol/L Potassium (3.5-5.1) mmol/L Chloride (98-107) mmol/L Carbon Dioxide (21.0-32.0) mmol/L BUN (7.0-18.0) mg/dL Creatinine (0.6-1.0) mg/dL Est Cr Clr Drug Dosing mL/min Estimated GFR (MDRD) ml/min Glucose (74-106) mg/dL Calcium (8.5-10.1) mg/dL Total Bilirubin 0.4 (0.2-1.0) mg/dL Direct Bilirubin 0.09 (0.0-0.5) mg/dL Indirect Bilirubin 0.31 AST 15 (15-37) IU/L ALT 16 (14-63) IU/L Alkaline Phosphatase 80 (46-116) U/L Total Protein 5.5 L (6.4-8.2) g/dL Albumin 2.7 L (3.4-5.0) g/dL Globulin 2.8 (2.6-4.0) g/dL Albumin/Globulin Ratio 1.0 (0.9-1.6) Acetaminophen < 2.0 2.4 ug/mL 05/26/19 05/26/19 Range/Units 05:53 05:53 INR 1.04 Sodium 146 H (136-145) mmol/L Potassium 3.7 (3.5-5.1) mmol/L Chloride 115 H (98-107) mmol/L Carbon Dioxide 21.5 (21.0-32.0) mmol/L BUN 3 L (7.0-18.0) mg/dL Creatinine 0.6 (0.6-1.0) mg/dL Est Cr Clr Drug Dosing 111.51 mL/min Estimated GFR (MDRD) > 60.0 ml/min Glucose 83 (74-106) mg/dL Calcium 8.3 L (8.5-10.1) mg/dL Total Bilirubin 0.4 (0.2-1.0) mg/dL Direct Bilirubin (0.0-0.5) mg/dL Indirect Bilirubin AST 15 (15-37) IU/L ALT 18 (14-63) IU/L Alkaline Phosphatase 75 (46-116) U/L Total Protein 5.1 L (6.4-8.2) g/dL Albumin 2.5 L (3.4-5.0) g/dL Globulin 2.6 (2.6-4.0) g/dL Albumin/Globulin Ratio 1.0 (0.9-1.6) Acetaminophen ug/mL Med Orders - Current: Current Medications Chlordiazepoxide HCl (Librium) 10 mg PO BID PRN PRN Reason: Agitation Last Admin: 05/26/19 01:37 Dose: 10 mg Folic Acid (Folic Acid) 1 mg PO BEDTIME ERNST Sodium Chloride (Normal Saline) 1,000 mls @ 125 mls/hr IV ASDIRECTED ERNST Last Admin: 05/26/19 09:37 Dose: 125 mls/hr Lorazepam (Ativan) 0 mg PO Q4H PRN; Protocol PRN Reason: Withdrawal Symptoms Last Admin: 05/25/19 14:51 Dose: 1 mg Lorazepam (Ativan) 0 mg IVPUSH ASDIRECTED PRN; Protocol PRN Reason: Withdrawal Symptoms Last Admin: 05/25/19 20:32 Dose: 2 mg Thiamine HCl (Vitamin B-1) 100 mg PO BEDTIME ERNST Discontinued Medications Acetylcysteine (Acetadote 20%) 10,000 mg IV ONETIME ONE Stop: 05/25/19 00:27 Last Admin: 05/25/19 01:54 Dose: Not Given Acetylcysteine (Acetadote 20%) 827 mg IV Q1H ERNST Stop: 05/25/19 04:46 Last Admin: 05/25/19 01:54 Dose: Not Given Acetylcysteine (Acetadote 20%) 418 mg IV Q1H ERNST Stop: 05/25/19 20:46 Chlordiazepoxide HCl (Librium) 10 mg PO BID PRN PRN Reason: Agitation Folic Acid (Folic Acid) 1 mg PO BEDTIME ERNST Folic Acid (Folic Acid) 1 mg PO ONETIME ONE Stop: 05/25/19 16:31 Last Admin: 05/25/19 16:30 Dose: 1 mg Haloperidol Lactate (Haldol) 2 mg IM ONETIME STA Stop: 05/25/19 17:04 Last Admin: 05/25/19 17:34 Dose: 2 mg Sodium Chloride (Normal Saline) 1,000 mls @ 999 mls/hr IV STAT ONE Stop: 05/24/19 22:20 Last Admin: 05/24/19 21:49 Dose: 999 mls/hr Acetylcysteine 10,000 mg/ (Dextrose/Water) 250 mls @ 250 mls/hr IV ONETIME ONE Stop: 05/25/19 01:59 Last Admin: 05/25/19 01:46 Dose: 250 mls/hr Acetylcysteine 3,350 mg/ (Dextrose/Water) 516.75 mls @ 129.188 mls/hr IV ONETIME ONE Stop: 05/25/19 05:59 Last Admin: 05/25/19 02:53 Dose: 129.188 mls/hr Acetylcysteine 6,700 mg/ (Dextrose/Water) 1,033.5 mls @ 64.594 mls/hr IV ONETIME ONE Stop: 05/25/19 17:14 Last Admin: 05/25/19 01:54 Dose: Not Given Acetylcysteine 6,700 mg/ (Dextrose/Water) 1,033.5 mls @ 64.594 mls/hr IV ONETIME ONE Stop: 05/25/19 21:59 Last Admin: 05/25/19 07:09 Dose: 64.594 mls/hr Lorazepam (Ativan) 0 mg IVPUSH Q4H PRN; Protocol PRN Reason: Withdrawal Symptoms Last Admin: 05/25/19 17:02 Dose: 2 mg Thiamine HCl (Vitamin B-1) 100 mg PO BEDTIME ERNST Thiamine HCl (Vitamin B-1) 100 mg PO ONETIME ONE Stop: 05/25/19 16:31 Last Admin: 05/25/19 16:30 Dose: 100 mg - My Orders Last 24 Hours: My Active Orders 05/26/19 Breakfast Regular Diet [DIET]
[2019-05-26] MEDS ORDERED: OLANZapine 5 MG Tab PO PRN (19:00)
[2019-05-26] MEDS ORDERED: Sodium Chloride 0.9% 10 ML Syringe FLUSH PRN (19:11)
[2019-05-26] MEDS ORDERED: Folic Acid 1 MG Tab PO SCH (21:00)
[2019-05-26] MEDS ORDERED: Thiamine 100 MG Tab PO SCH (21:00)
[2019-05-27] MEDS ORDERED: Venlafaxine 37.5 MG Cap.ER PO SCH (07:00)
--- NOTE | 2019-05-27 08:51 | PN ---
THC Physician - Brief Progress [id number]/04/2019 08:37[facility] Claire Jackson, [place] - MWN (GENESISN) - MWN James HOPE of Service 05/27/2019 08:37HPI/Events of N ote eICU Daily Progress [id number] admitted for intentional overdose and elevated acetaminophen level.On camera evaluation: laying in bed, eyes closed. VSS per monitor, on room air.Evaluation of vitals in the past several hours reveals patient to be hemodynamically stable. Laboratory studies from this mo rning reveal patient to be mildly hyponatremic, with a normal AST and ALT, with hypoalbuminemia. Per MAR documentation, EMR, patient last received lorazepam on May 25. It appears that chlordiazep oxide has been discontinued.EICU assessment:Intentional drug overdoseElevated Tylenol levels, now nor malized, without evidence of transaminitisEncephalopathy, with concern for possible alcohol withdrawa leICU recommendations:DVT prophylaxis per primary service, consider sequential compression devices an d ambulation patient should pharmacologic therapy be deferredSuicide precautionsDefer inpatient place ment to psychiatryI note chlordiazepoxide discontinued, patient does not appear to have required jennifer zepam since 05/25, it appears behavioral disturbances managed by anti-psychotics per review of document ation by primary service and review of MAR. Will defer management of encephalopathy to primary servic e, however we are available to assist if desired.Thank you for allowing us to participate in this pat ient's care.Interventions Major-Delirium, psychosis, severe agitation - evaluation and management, Ot her: intentional drug overdose, elevated tylenol level
--- NOTE | 2019-05-27 10:43 | PCM.DCSUM1 ---
<Princess Slater - Last Filed: 05/27/19 10:29> Discharge Summary - Hospital Course Free Text/Narrative:: discharge summary Admission date: May 24, 2019 discharge date: May 27, 2019 Admission diagnoses: intentional medication overdose with suicidal ideation Salicylate poisoning Delirium/psychosis Past medical history: depression and anxiety Discharge diagnoses: Intentional medication overdose with suicidal ideation: stable Salicylate poisoning: stable Delirium psychosis: stable Past medical history: depression and anxiety Consultations: eICU Dr. Walter Hawkins: psychiatry Procedures: None Hospital course: 49-year-old female past medical history anxiety depression, presenting to the ED via family/EMS secondary to suspicion for Tylenol and olanzapine overdose; patient was found to be increasingly somnolent, confused, unable to have a full conversation with full sentences, vacillating episodes of agitation versus somnolence. Patient initiated on N-acetylcysteine per elevated Tylenol levels; eICU admission with consultation; Dr. Hawkins of psychiatry consultation. Patient improved while in CIWAA Antivan protocol; patient required 1 dose of Haldol increasing agitation; responded well. Day prior to discharge patient saw chickens; due to hallucinations the patient required Haldol resolution of symptoms. Dr. Hawkins recommended restarting patient on venlafaxine 75 mg extended release daily; patient was on this medication in the past; had stopped it due to financial reasons; currently does not have any financial concerns. Following morning patient became stable; denying any new symptoms. Denied any suicidal or homicidal ideation. Agree with plan to continue Effexor and follow- up with outpatient primary care either at [facility] and outpatient psychiatry. patient provided numbers and contact numbers for multiple providers in the [place] Including Dr. Hawkins , Nu Fitzpatrick, and primary care physicians at . She understood plan. Was stable. Accompanied by her fianc; both agreed to plan and necessity of follow-up. Patient does not endorse suicidal or homicidal thoughts at discharge. Patient denied any new symptoms with first dose of Effexor. discharge medications: Effexxor 75 mg ER/daily Discharge instructions: patient advised to contact provider if symptoms of fever , chills, body aches, suicidal ideation, homicidal ideation, palpitations, chest pain, shortness of breath or any other new symptoms against her baseline; advised to contact EMS if suicidal/homicidal thoughts develop and/or hallucinations. Follow-up: patient advised to follow with primary care providers, outpatient psychiatry; within 7-10 days. Numbers provided to patient at discharge - Discharge Data Discharge Date: 05/27/19 Discharge Disposition: Home, Self-Care 01 Condition: Fair - Discharge Diagnosis/Problem(s) (1) Altered mental status SNOMED Code(s): 510695670 ICD Code: R41.82 - ALTERED MENTAL STATUS, UNSPECIFIED Status: Acute (2) Overdose SNOMED Code(s): 61755810 ICD Code: T50.901A - POISONING BY UNSP DRUG/MEDS/BIOL SUBST, ACCIDENTAL, INIT Status: Acute (3) Anxiety SNOMED Code(s): 49703956 ICD Code: F41.9 - ANXIETY DISORDER, UNSPECIFIED Status: Acute (4) Depression SNOMED Code(s): 24535710 ICD Code: F32.9 - MAJOR DEPRESSIVE DISORDER, SINGLE EPISODE, UNSPECIFIED Status: Acute Qualifiers: Depression Type: unspecified Qualified Code(s): F32.9 - Major depressive disorder, single episode, unspecified - Patient Summary/Data Consults: Consultations 05/26/19 14:39 Consult to Physician [CONS] Routine - Patient Instructions Driving: Do Not Drive Notify Provider of: Fever, Increased Pain, Swelling and Redness, Drainage, Nausea and/or Vomiting Other/Special Instructions: patient advised to notify provider if symptoms of fever, chills, body aches palpitations, racing heart sensation, thoughts of harming self or or others, hallucination or any new symptoms against baseline. Patient advised to follow-up with either. : Darlin Bender [employer] : [phone] Walter Hawkins. [phone] [place]. ,[place]. or [place], [place]. Primary Care. for follow-up and medication review within 7-10 days - Discharge Plan *PRESCRIPTION DRUG MONITORING PROGRAM REVIEWED*: No *COPY OF PRESCRIPTION DRUG MONITORING REPORT IN PATIENT KAYLA: No Prescriptions/Med Rec: Venlafaxine HCl [Venlafaxine ER] 75 mg PO DAILY 14 Days #14 cap.er.24h Home Medications: Home Meds Venlafaxine HCl [Venlafaxine ER] 75 mg PO DAILY 14 Days #14 cap.er.24h 05/27/19 [Rx] Forms: ED Department Discharge Referrals: Walter Hawkins MD [Physician] - Darlin Bender NP [Ordering Only Provider] - Fareed Winn MD [Resident] - 06/10/19 2:00 pm - Discharge Summary/Plan Comment DC Time >30 min.: No - Patient Data Vitals - Most Recent: Last Vital Signs Temp 98.3 F 05/27/19 09:00 Pulse 95 05/27/19 09:00 Resp 16 05/27/19 09:00 BP 117/79 05/27/19 09:00 Pulse Ox 95 05/27/19 09:00 Weight - Most Recent: 66.3 kg I&O - Last 24 hours: Intake & Output 05/26/19 05/27/19 05/27/19 22:59 06:59 14:59 Intake Total 4003 450 Output Total 1200 800 Balance 2803 -350 Med Orders - Current: Current Medications Folic Acid (Folic Acid) 1 mg PO BEDTIME ERNST Last Admin: 05/26/19 20:16 Dose: 1 mg Lorazepam (Ativan) 0 mg PO Q4H PRN; Protocol PRN Reason: Withdrawal Symptoms Last Admin: 05/25/19 14:51 Dose: 1 mg Lorazepam (Ativan) 0 mg IVPUSH ASDIRECTED PRN; Protocol PRN Reason: Withdrawal Symptoms Last Admin: 05/25/19 20:32 Dose: 2 mg Olanzapine (Zyprexa) 2.5 mg PO BEDTIME PRN PRN Reason: Insomnia Last Admin: 05/26/19 20:16 Dose: 2.5 mg Sodium Chloride (Saline Flush) 10 ml FLUSH ASDIRECTED PRN PRN Reason: Keep Vein Open Last Admin: 05/27/19 08:49 Dose: 10 ml Thiamine HCl (Vitamin B-1) 100 mg PO BEDTIME ERNST Last Admin: 05/26/19 20:16 Dose: 100 mg Venlafaxine HCl (Effexor Xr) 75 mg PO DAILY ERNST Last Admin: 05/27/19 08:34 Dose: 75 mg Discontinued Medications Acetylcysteine (Acetadote 20%) 10,000 mg IV ONETIME ONE Stop: 05/25/19 00:27 Last Admin: 05/25/19 01:54 Dose: Not Given Acetylcysteine (Acetadote 20%) 827 mg IV Q1H ERNST Stop: 05/25/19 04:46 Last Admin: 05/25/19 01:54 Dose: Not Given Acetylcysteine (Acetadote 20%) 418 mg IV Q1H [facility] Stop: 05/25/19 20:46 Chlordiazepoxide HCl (Librium) 10 mg PO BID PRN PRN Reason: Agitation Chlordiazepoxide HCl (Librium) 10 mg PO BID PRN PRN Reason: Agitation Last Admin: 05/26/19 01:37 Dose: 10 mg Folic Acid (Folic Acid) 1 mg PO BEDTIME ERNST Folic Acid (Folic Acid) 1 mg PO ONETIME ONE Stop: 05/25/19 16:31 Last Admin: 05/25/19 16:30 Dose: 1 mg Haloperidol Lactate (Haldol) 2 mg IM ONETIME STA Stop: 05/25/19 17:04 Last Admin: 05/25/19 17:34 Dose: 2 mg Sodium Chloride (Normal Saline) 1,000 mls @ 999 mls/hr IV STAT ONE Stop: 05/24/19 22:20 Last Admin: 05/24/19 21:49 Dose: 999 mls/hr Sodium Chloride (Normal Saline) 1,000 mls @ 125 mls/hr IV ASDIRECTED [facility] Last Admin: 05/26/19 17:34 Dose: 125 mls/hr Acetylcysteine 10,000 mg/ (Dextrose/Water) 250 mls @ 250 mls/hr IV ONETIME ONE Stop: 05/25/19 01:59 Last Admin: 05/25/19 01:46 Dose: 250 mls/hr Acetylcysteine 3,350 mg/ (Dextrose/Water) 516.75 mls @ 129.188 mls/hr IV ONETIME ONE Stop: 05/25/19 05:59 Last Admin: 05/25/19 02:53 Dose: 129.188 mls/hr Acetylcysteine 6,700 mg/ (Dextrose/Water) 1,033.5 mls @ 64.594 mls/hr IV ONETIME ONE Stop: 05/25/19 17:14 Last Admin: 05/25/19 01:54 Dose: Not Given Acetylcysteine 6,700 mg/ (Dextrose/Water) 1,033.5 mls @ 64.594 mls/hr IV ONETIME ONE Stop: 05/25/19 21:59 Last Admin: 05/25/19 07:09 Dose: 64.594 mls/hr Lorazepam (Ativan) 0 mg IVPUSH Q4H PRN; Protocol PRN Reason: Withdrawal Symptoms Last Admin: 05/25/19 17:02 Dose: 2 mg Thiamine HCl (Vitamin B-1) 100 mg PO BEDTIME ERNST Thiamine HCl (Vitamin B-1) 100 mg PO ONETIME ONE Stop: 05/25/19 16:31 Last Admin: 05/25/19 16:30 Dose: 100 mg <Trevor Tyler - Last Filed: 05/27/19 16:31> Discharge Summary - Hospital Course Free Text/Narrative:: I have seen and examined the patient independently of Dr. Bryon MD. I have reviewed and agree with the plan of care as outlined for this patient by him. I have discussed the case with him. Please see orders. - Patient Summary/Data Consults: Consultations 05/26/19 14:39 Consult to Physician [CONS] Routine - Patient Data Vitals - Most Recent: Last Vital Signs Temp 36.8 C 05/27/19 09:00 Pulse 95 05/27/19 09:00 Resp 16 05/27/19 09:00 BP 117/79 05/27/19 09:00 Pulse Ox 95 05/27/19 09:00 I&O - Last 24 hours: Intake & Output 05/27/19 05/27/19 05/27/19 06:59 14:59 22:59 Intake Total 450 Output Total 800 Balance -350 Med Orders - Current: Current Medications Discontinued Medications Acetylcysteine (Acetadote 20%) 10,000 mg IV ONETIME ONE Stop: 05/25/19 00:27 Last Admin: 05/25/19 01:54 Dose: Not Given Acetylcysteine (Acetadote 20%) 827 mg IV Q1H ERNST Stop: 05/25/19 04:46 Last Admin: 05/25/19 01:54 Dose: Not Given Acetylcysteine (Acetadote 20%) 418 mg IV Q1H ERNST Stop: 05/25/19 20:46 Chlordiazepoxide HCl (Librium) 10 mg PO BID PRN PRN Reason: Agitation Chlordiazepoxide HCl (Librium) 10 mg PO BID PRN PRN Reason: Agitation Last Admin: 05/26/19 01:37 Dose: 10 mg Folic Acid (Folic Acid) 1 mg PO BEDTIME ERNST Folic Acid (Folic Acid) 1 mg PO BEDTIME ERNST Last Admin: 05/26/19 20:16 Dose: 1 mg Folic Acid (Folic Acid) 1 mg PO ONETIME ONE Stop: 05/25/19 16:31 Last Admin: 05/25/19 16:30 Dose: 1 mg Haloperidol Lactate (Haldol) 2 mg IM ONETIME STA Stop: 05/25/19 17:04 Last Admin: 05/25/19 17:34 Dose: 2 mg Sodium Chloride (Normal Saline) 1,000 mls @ 999 mls/hr IV STAT ONE Stop: 05/24/19 22:20 Last Admin: 05/24/19 21:49 Dose: 999 mls/hr Sodium Chloride (Normal Saline) 1,000 mls @ 125 mls/hr IV ASDIRECTED ERNST Last Admin: 05/26/19 17:34 Dose: 125 mls/hr Acetylcysteine 10,000 mg/ (Dextrose/Water) 250 mls @ 250 mls/hr IV ONETIME ONE Stop: 05/25/19 01:59 Last Admin: 05/25/19 01:46 Dose: 250 mls/hr Acetylcysteine 3,350 mg/ (Dextrose/Water) 516.75 mls @ 129.188 mls/hr IV ONETIME ONE Stop: 05/25/19 05:59 Last Admin: 05/25/19 02:53 Dose: 129.188 mls/hr Acetylcysteine 6,700 mg/ (Dextrose/Water) 1,033.5 mls @ 64.594 mls/hr IV ONETIME ONE Stop: 05/25/19 17:14 Last Admin: 05/25/19 01:54 Dose: Not Given Acetylcysteine 6,700 mg/ (Dextrose/Water) 1,033.5 mls @ 64.594 mls/hr IV ONETIME ONE Stop: 05/25/19 21:59 Last Admin: 05/25/19 07:09 Dose: 64.594 mls/hr Lorazepam (Ativan) 0 mg PO Q4H PRN; Protocol PRN Reason: Withdrawal Symptoms Last Admin: 05/25/19 14:51 Dose: 1 mg Lorazepam (Ativan) 0 mg IVPUSH Q4H PRN; Protocol PRN Reason: Withdrawal Symptoms Last Admin: 05/25/19 17:02 Dose: 2 mg Lorazepam (Ativan) 0 mg IVPUSH ASDIRECTED PRN; Protocol PRN Reason: Withdrawal Symptoms Last Admin: 05/25/19 20:32 Dose: 2 mg Olanzapine (Zyprexa) 2.5 mg PO BEDTIME PRN PRN Reason: Insomnia Last Admin: 05/26/19 20:16 Dose: 2.5 mg Sodium Chloride (Saline Flush) 10 ml FLUSH ASDIRECTED PRN PRN Reason: Keep Vein Open Last Admin: 05/27/19 08:49 Dose: 10 ml Thiamine HCl (Vitamin B-1) 100 mg PO BEDTIME ENRST Thiamine HCl (Vitamin B-1) 100 mg PO BEDTIME ERNST Last Admin: 05/26/19 20:16 Dose: 100 mg Thiamine HCl (Vitamin B-1) 100 mg PO ONETIME ONE Stop: 05/25/19 16:31 Last Admin: 05/25/19 16:30 Dose: 100 mg Venlafaxine HCl (Effexor Xr) 75 mg PO DAILY ERNST Last Admin: 05/27/19 08:34 Dose: 75 mg
--- NOTE | 2019-05-27 13:55 | CONS ---
DATE OF CONSULTATION: 05/26/2019 DATE OF : 1970 PRIMARY CARE PHYSICIAN: None PCP Site where the services are provided is [facility] in [place], [place]. Site where the services are provided from, our offices in [facility]. Length of service for this 60-minute inpatient telemedicine event is 60 minutes. IDENTIFICATION: The patient is a 49-year-old female who was admitted to the [facility] in [place], [place]. She is seen now for psychiatric consultation per the request of staff attending, Dr. Tyler and his treatment team. CHIEF COMPLAINT: "It is just that me and my fiance had a fight." HISTORY OF PRESENT ILLNESS: The patient is a 49-year-old female who reports that she was having a fight with her fiance the other night and she notes "I got burned down and overwhelmed. I took some pills. I was not suicidal." The patient states "I just wanted to get some sleep and get away" from all the drama that she was having with her boyfriend. She states that she normally takes Zyprexa which was 1 of the medications that she overdosed on to help with anxiety and panic. She states her mood is generally pretty good, but she just had a bad day the other day. She states now "I feel 100% better than I did yesterday," and she also relates that she used to be on Effexor, but she stopped this medication for financial consideration a while back, but she states "it really worked" for her symptoms of depression. The patient is wondering if she can get back on the Effexor now and continue with the Zyprexa because she felt that combination was really effective for her. Again, she is denying that she is suicidal or homicidal at this point in time, and in fact is reiterating that she was never suicidal in the 1st place. She denies that she is psychotic, delusional, or paranoid. She denies any illicit substance use complicating her clinical picture. She also denies having any guns at her home, but again she is stating that she was not suicidal in the least nor is she is suicidal at this point in time, and would like to be discharged when she is medically stabilized. MEDICATIONS AT TIME OF PRESENTATION: Zyprexa at 2.5 mg at bedtime. The patient has been on this medication for 6 years for clarity of thought, mood stability, anxiety reduction, sleep initiation and maintenance. ALLERGIES: No known drug allergies. PAST MEDICAL HISTORY: The patient denies. REVIEW OF SYSTEMS: Negative for any acute difficulties or complications currently with her GI, , pulmonary, cardiac, endocrine, bladder, immune, skin, musculoskeletal, and nervous systems. FAMILY PSYCHIATRIC AND CD HISTORY: The patient reports father had a history of clinical depression. PAST PSYCHIATRIC AND CD HISTORY: The patient reports 1 psychiatric hospitalization back in 2014 over in [place], [place]. Denies any chemical dependency treatment. She reports 1 suicide attempt in the past that was remote. PAST PSYCHIATRIC MEDICATION HISTORY: Includes Effexor which worked for her; Prozac, Lexapro which did not work for her; and then Xanax. PAST PSYCHIATRIC DIAGNOSES: Question of bipolar affect disease as well as anxiety and possible depression. SOCIAL HISTORY: The patient was born and raised over in [place]. She has been living in [place] for about a year now. She has been x1, for 14 years, had been in a current relationship for 1-1/2 years. She has 3 children from the marriage. She is currently again living in [place] with her boyfriend, her fiaudrey. The fiance works for an [employer]. 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 She denies any prior service or any current legal difficulties. She is Hindu in terms of her shabnam formation. She enjoys walking, shooting guns, and spending time with her grandchildren. MENTAL STATUS EXAMINATION: The patient is a 49-year-old white female, in no apparent distress. Speech is of regular rate and rhythm. The patient is cognitively oriented. Psychomotor activities within normal limits. There are no abnormal motor movements or tics observed. Gait and station are not observed. This patient is seated in bed for the purposes of the inpatient consult. Mood is "100% better." Affect is cooperative overall for the purposes of the intake interview. There is no behavioral or stated evidence of acute suicidal or homicidal ideation or acute psychotic, delusional, or paranoid symptoms. Thought processes are organized. There are no manic symptoms or loose associations evident. Judgment and insight appear unimpaired at this point in time. Motivation for help is good. VITAL SIGNS: 118/53, 84, 19, 98.1 degrees. IMPRESSION: [place] I: 1. Major depressive disorder, F32.2. 2. History of anxiety disorder, not otherwise specified, F41.9. 3. Rule out bipolar affect disease, mixed type. [place] II: None. [place] III: 1. Status post overdose with Zyprexa and Tylenol. Otherwise, no known active problems. [place] IV: Moderate to severe. [place] V: 55 to 60. PLAN: 1. Begin trial of Effexor XR 75 mg q.a.m. for symptoms of depression. 2. Continue Zyprexa at 2.5 mg at bedtime. 3. Counseling per patient discussion for psychosocial issues. 4. The patient is instructed to maintain good hydration status on the outside. 5. Would recommend eventually discontinue one-to-one as the patient does not appear to be a danger to herself or others at this point in time and is greer for safety. 6. Recommend that when the patient is medically stabilized and discharged back to community, she follow up with Outpatient Psychiatry to assess overall function and efficacy of her newly adjusted and continued psychiatric medication regimen. 7. We will continue to follow up with the patient on an as-needed basis while she remains on inpatient MICU at [facility] in [place], [place]. 8. We will follow up the patient sooner if any complications in the interim. 9. The patient may be able to be discharged back to community when she is medically stabilized as she does not appear to be a danger to herself or others at this point in time. She does not need transfer to Inpatient Psychiatry at the moment. 10.Crisis plan is in place. BO MCKINNON /[id number]
== END 2019-05-27 11:38 | disposition home or self-care (01) ==
LOC: MW.ED 20:59 → MW.ICU 22:09
PROVIDERS: ADMIT Internal Medicine; ATTEND Internal Medicine
DX: T39.092A Poisoning by salicylates, intentional self-harm, initial encounter (principal); T42.4X2A Poisoning by benzodiazepines, intentional self-harm, initial encounter; R45.851 Suicidal ideations; F29 Unspecified psychosis not due to a substance or known physiological condition; F32.9 Major depressive disorder, single episode, unspecified
CPT/HCPCS: 36415; 80053; 80076; 80305; 80320; 80329; 81001; 81025; 83735; 84443; 85025; 85610; 93005; 96361; 96365; 96366; 96372; 96375; 96376; 99285; A9270; G0378; J0132; J1630; J2060; J7040; J7060; 96360; G0480

== ENCOUNTER 2020-08-14 02:11 | Emergency (ER) | payer SELFPAY ==
[2020-08-14] MEDS ORDERED: Sodium Chloride 0.9% 10 ML Syringe FLUSH PRN (02:17)
[2020-08-14] MEDS ORDERED: Sodium Chloride 0.9% 2.5 ML Syringe FLUSH PRN (02:17)
[2020-08-14] MEDS ORDERED: Nitroglycerin 0.4 MG Tab.SL SL PRN (02:18)
--- NOTE | 2020-08-14 02:22 | EDM.PDOC ---
ED HPI GENERAL MEDICAL PROBLEM - General Stated Complaint: AMB Time Seen by Provider: 08/14/20 02:17 Source of Information: Reports: Patient History Limitations: Reports: No Limitations - History of Present Illness INITIAL COMMENTS - FREE TEXT/NARRATIVE: 50-year-old female with history of depression and anxiety presents with left- sided chest pain for 1 week. Pain is pleuritic, waxes and wanes, reproducible, nonradiating, rated 8/10 tonight. EMS gave 324 mg aspirin and 1 inch of nitro spray. She associates with dyspnea, chills, dry cough, generalized malaise, palpitations. She denies fever, nausea, vomiting, myalgia. She has never had a stress test. ROS: A 10-point review of systems, other than pertinent positives and negatives as stated per HPI, is otherwise negative Past medical history: No additional pertinent history Past Surgical history: No additional pertinent history Social history: No smoking. Family history: No additional pertinent history PHYSICAL EXAM General: AOx4, GCS = 15, No distress HEENT: dry mucous membrane Neck: supple, no meningismus, no Kernig or Brudzinski Cardiac: S1S2 RRR Chest wall: ttp left anterior chest wall, 100% reproducible Respiratory: CTAB, no crackles or rales, no wheezing Abdomen: Soft, nontender, no rebound or guarding, nondistended, no pulsatile mass. Back: nontender Musculoskeletal: NVI distally, no deformity Neuro: No focal deficits, CN 2 - 12 WNL. Left Upper Chest Pain Score (Numeric/FACES): 6 - Related Data Allergies Allergy/AdvReac Type Severity Reaction Status Date / Time No Known Allergies Allergy Verified 09/25/18 20:05 Home Meds: Home Meds Venlafaxine HCl [Venlafaxine ER] 75 mg PO DAILY 14 Days #14 cap.er.24h 05/27/19 [Rx] Azithromycin [Zithromax] 250 mg PO DAILY #6 tab 08/14/20 [Rx] Naproxen [EC-Naproxen] 500 mg PO BID #10 tablet. 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 Musculoskeletal History: Reports: None Neurological History: Reports: None Psychiatric History: Reports: None Endocrine/Metabolic History: Reports: None Hematologic History: Reports: None Immunologic History: Reports: None Oncologic (Cancer) History: Reports: None Dermatologic History: Reports: None - Infectious Disease History Infectious Disease History: Reports: Chicken Pox - Past Surgical History Head Surgeries/Procedures: Reports: None Cardiovascular Surgical History: Reports: None Social & Family History - Family History Family Medical History: No Pertinent Family History - Caffeine Use Caffeine Use: Reports: Coffee ED ROS GENERAL - Review of Systems Review Of Systems: See Below (see dictation) ED EXAM, GENERAL - Physical Exam Exam: See Below (see dictation) #1 Interpretation EKG Interpretation Comments: Heart rate = 85 bpm, normal sinus rhythm, normal QRS interval, no STEMI. EKG and rhythm strip interpreted by me at 0215 Course - Vital Signs Last Recorded V/S: Last Vital Signs Temp 97.6 F 08/14/20 02:21 Pulse 81 08/14/20 04:38 Resp 14 08/14/20 04:38 BP 123/85 08/14/20 04:38 Pulse Ox 95 08/14/20 04:38 - Orders/Labs/Meds Orders: Active Orders 24 hr Category Date Time Status Cardiac Monitoring [RC] . DIRECTED Care 08/14/20 02:17 Active EKG Documentation Completion [RC] STAT Care 08/14/20 02:18 Active Sodium Chloride 0.9% [Saline Flush] Med 08/14/20 02:17 Active 10 ml FLUSH ASDIRECTED PRN Sodium Chloride 0.9% [Saline Flush] Med 08/14/20 02:17 Active 2.5 ml FLUSH ASDIRECTED PRN Saline Lock Insert [OM.PC] Stat Oth 08/14/20 02:17 Ordered Medication Orders Sodium Chloride (Saline Flush) 10 ml FLUSH ASDIRECTED PRN PRN Reason: Keep Vein Open Sodium Chloride (Saline Flush) 2.5 ml FLUSH ASDIRECTED PRN PRN Reason: Keep Vein Open Labs: Laboratory Tests 08/14/20 08/14/20 08/14/20 Range/Units 02:35 02:45 02:45 WBC 4.45 (4.0-11.0) K/uL RBC 4.84 (4.30-5.90) M/uL Hgb 14.6 (12.0-16.0) g/dL Hct 45.2 (36.0-46.0) % MCV 93.4 (80.0-98.0) fL MCH 30.2 (27.0-32.0) pg MCHC 32.3 (31.0-37.0) g/dL RDW Std Deviation 45.8 (28.0-62.0) fl RDW Coeff of Malini 13 (11.0-15.0) % Plt Count 286 (150-400) K/uL MPV 9.20 (7.40-12.00) fL Neut % (Auto) 35.5 L (48.0-80.0) % Lymph % (Auto) 51.2 H (16.0-40.0) % Hickman % (Auto) 12.4 (0.0-15.0) % Eos % (Auto) 0.7 (0.0-7.0) % Baso % (Auto) 0.2 (0.0-1.5) % Neut # (Auto) 1.6 (1.4-5.7) K/uL Lymph # (Auto) 2.3 (0.6-2.4) K/uL Hickman # (Auto) 0.6 (0.0-0.8) K/uL Eos # (Auto) 0.0 (0.0-0.7) K/uL Baso # (Auto) 0.0 (0.0-0.1) K/uL Nucleated RBC % 0.0 /100WBC Nucleated RBCs # 0 K/uL INR D-Dimer, Quantitative 0.74 H (0.0-0.50) mg/L FEU Sodium (136-145) mmol/L Potassium (3.5-5.1) mmol/L Chloride (98-107) mmol/L Carbon Dioxide (21.0-32.0) mmol/L BUN (7.0-18.0) mg/dL Creatinine (0.6-1.0) mg/dL Est Cr Clr Drug Dosing mL/min Estimated GFR (MDRD) ml/min Glucose (74-106) mg/dL Calcium (8.5-10.1) mg/dL Ferritin (8-252) ng/mL Total Bilirubin (0.2-1.0) mg/dL AST (15-37) IU/L ALT (14-63) IU/L Alkaline Phosphatase (46-116) U/L Troponin I (0.000-0.056) ng/mL C-Reactive Protein (0.00-0.90) mg/dL B-Natriuretic Peptide (<100) PG/ML Total Protein (6.4-8.2) g/dL Albumin (3.4-5.0) g/dL Globulin (2.6-4.0) g/dL Albumin/Globulin Ratio (0.9-1.6) HCG, Qual (NEG) Ethyl Alcohol mg/dL SARS-CoV-2 RNA (BETI) POSITIVE H (NEGATIVE) 08/14/20 08/14/20 08/14/20 Range/Units 02:45 02:45 02:45 WBC (4.0-11.0) K/uL RBC (4.30-5.90) M/uL Hgb (12.0-16.0) g/dL Hct (36.0-46.0) % MCV (80.0-98.0) fL MCH (27.0-32.0) pg MCHC (31.0-37.0) g/dL RDW Std Deviation (28.0-62.0) fl RDW Coeff of Malini (11.0-15.0) % Plt Count (150-400) K/uL MPV (7.40-12.00) fL Neut % (Auto) (48.0-80.0) % Lymph % (Auto) (16.0-40.0) % Hickman % (Auto) (0.0-15.0) % Eos % (Auto) (0.0-7.0) % Baso % (Auto) (0.0-1.5) % Neut # (Auto) (1.4-5.7) K/uL Lymph # (Auto) (0.6-2.4) K/uL Hickman # (Auto) (0.0-0.8) K/uL Eos # (Auto) (0.0-0.7) K/uL Baso # (Auto) (0.0-0.1) K/uL Nucleated RBC % /100WBC Nucleated RBCs # K/uL INR 0.98 D-Dimer, Quantitative (0.0-0.50) mg/L FEU Sodium 148 H (136-145) mmol/L Potassium 3.7 (3.5-5.1) mmol/L Chloride 110 H (98-107) mmol/L Carbon Dioxide 27.3 (21.0-32.0) mmol/L BUN 3 L (7.0-18.0) mg/dL Creatinine 0.9 (0.6-1.0) mg/dL Est Cr Clr Drug Dosing 73.09 mL/min Estimated GFR (MDRD) > 60.0 ml/min Glucose 100 (74-106) mg/dL Calcium 8.1 L (8.5-10.1) mg/dL Ferritin (8-252) ng/mL Total Bilirubin 0.2 (0.2-1.0) mg/dL AST 91 H (15-37) IU/L ALT 125 H (14-63) IU/L Alkaline Phosphatase 227 H (46-116) U/L Troponin I < 0.050 (0.000-0.056) ng/mL C-Reactive Protein 0.50 (0.00-0.90) mg/dL B-Natriuretic Peptide 18 (<100) PG/ML Total Protein 7.2 (6.4-8.2) g/dL Albumin 3.3 L (3.4-5.0) g/dL Globulin 3.9 (2.6-4.0) g/dL Albumin/Globulin Ratio 0.9 (0.9-1.6) HCG, Qual (NEG) Ethyl Alcohol 188 mg/dL SARS-CoV-2 RNA (BETI) (NEGATIVE) 08/14/20 08/14/20 Range/Units 02:45 02:45 WBC (4.0-11.0) K/uL RBC (4.30-5.90) M/uL Hgb (12.0-16.0) g/dL Hct (36.0-46.0) % MCV (80.0-98.0) fL MCH (27.0-32.0) pg MCHC (31.0-37.0) g/dL RDW Std Deviation (28.0-62.0) fl RDW Coeff of Malini (11.0-15.0) % Plt Count (150-400) K/uL MPV (7.40-12.00) fL Neut % (Auto) (48.0-80.0) % Lymph % (Auto) (16.0-40.0) % Hickman % (Auto) (0.0-15.0) % Eos % (Auto) (0.0-7.0) % Baso % (Auto) (0.0-1.5) % Neut # (Auto) (1.4-5.7) K/uL Lymph # (Auto) (0.6-2.4) K/uL Hickman # (Auto) (0.0-0.8) K/uL Eos # (Auto) (0.0-0.7) K/uL Baso # (Auto) (0.0-0.1) K/uL Nucleated RBC % /100WBC Nucleated RBCs # K/uL INR D-Dimer, Quantitative (0.0-0.50) mg/L FEU Sodium (136-145) mmol/L Potassium (3.5-5.1) mmol/L Chloride (98-107) mmol/L Carbon Dioxide (21.0-32.0) mmol/L BUN (7.0-18.0) mg/dL Creatinine (0.6-1.0) mg/dL Est Cr Clr Drug Dosing mL/min Estimated GFR (MDRD) ml/min Glucose (74-106) mg/dL Calcium (8.5-10.1) mg/dL Ferritin 66 (8-252) ng/mL Total Bilirubin (0.2-1.0) mg/dL AST (15-37) IU/L ALT (14-63) IU/L Alkaline Phosphatase (46-116) U/L Troponin I (0.000-0.056) ng/mL C-Reactive Protein (0.00-0.90) mg/dL B-Natriuretic Peptide (<100) PG/ML Total Protein (6.4-8.2) g/dL Albumin (3.4-5.0) g/dL Globulin (2.6-4.0) g/dL Albumin/Globulin Ratio (0.9-1.6) HCG, Qual NEGATIVE (NEG) Ethyl Alcohol mg/dL SARS-CoV-2 RNA (BETI) (NEGATIVE) Meds: Medications Generic Name Dose Route Start Last Admin Trade Name Xavier PRN Reason Stop Dose Admin Sodium Chloride 10 ml 08/14/20 02:17 Saline Flush FLUSH ASDIRECTED PRN Keep Vein Open Sodium Chloride 2.5 ml 08/14/20 02:17 Saline Flush FLUSH ASDIRECTED PRN Keep Vein Open Discontinued Medications Generic Name Dose Route Start Last Admin Trade Name Freq PRN Reason Stop Dose Admin Iopamidol 75 ml 08/14/20 04:03 08/14/20 04:05 Isovue Multipack-370 (76%) IVPUSH 08/14/20 04:04 75 ml ONETIME STA Administration Ketorolac Tromethamine 30 mg 08/14/20 02:24 08/14/20 02:30 Toradol IVPUSH 08/14/20 02:25 30 mg ONETIME ONE Administration Morphine Sulfate 4 mg 08/14/20 03:28 08/14/20 03:32 Morphine IVPUSH 08/14/20 03:29 4 mg ONETIME ONE Administration Nitroglycerin 0.4 mg 08/14/20 02:18 Nitrostat SL Q5M PRN Chest Pain - Re-Assessments/Exams Free Text/Narrative Re-Assessment/Exam: 08/14/20 03:41 After prolonged observation in the ER, the patient improved and is currently stable for discharge. I performed a repeat exam and did not appreciate new abnormal findings. I informed her of the findings of the liver mass today needing urgent follow-up with PCP. Patient exhibits normal vital signs and has a normal gait on road test. She was not hypoxic or retracting or in respiratory distress. I advised the patient to follow-up in regards to the liver mass findings on CT today, or return to the ER for reevaluation if symptoms worsened, including fever, worsening pain, or any other worrisome symptoms. I instructed the patient to follow up with their PCP within 2-3 days. MEDICAL DECISION MAKING: I reviewed the patients past medical records, lab and radiographic findings. I discussed the case with the patient. My differential diagnosis included: ACS, pneumonia, PE, CHest wall pain, covid, pneumothorax, chest wall pain, pulmonary edema/CHF, aortic dissection, pericarditis, intra- abdominal process. Her physical exam demonstrated reproducible tenderness to the left chest wall, consistent with chest wall pain. Patient was tested positive for Covid, imaging of the chest demonstrate Covid pneumonia. She was satting 94% on room air. She was not hypoxic or tachypneic or exhibiting retractions or respiratory distress. Given the EKG and clinical history, I do not suspect pericarditis. There is no evidence of pneumothorax or infiltrate on CXR. Aortic dissection was considered, however CTA Chest did not demonstrate dissection. The patients history, chest X-ray, and exam do not suggest pulmonary edema/congestive heart failure. Pulmonary embolism was considered. CTA chest was performed and ruled out for PE. Intra-abdominal pathology felt unlikely given benign/non tender abdominal exam. CTA chest did not demonstrate abnormal findings in the liver concerning for malignancy, findings were communicated with the patient for close outpatient follow-up with PCP for further imaging and assessment. Acute coronary syndrome was considered but there are negative biomarkers with symptoms > 6hrs, no acute ischemic EKG changes, and the patient has a low HEART score. Based on this, I feel that there is low risk for short-term major adverse cardiac event. She will pursue further workup on as an outpatient. Her alcohol level demonstrated acute alcohol intoxication. She was clinically sober for discharge. Departure - Departure Time of Disposition: 04:51 Disposition: Home, Self-Care 01 Condition: Good Clinical Impression: Chest pain, Alcohol intoxication, Chest wall pain, COVID-19, Pneumonia, Transaminitis, Liver mass - Discharge Information *PRESCRIPTION DRUG MONITORING PROGRAM REVIEWED*: Not Applicable *COPY OF PRESCRIPTION DRUG MONITORING REPORT IN PATIENT KAYLA: Not Applicable Prescriptions: Naproxen [EC-Naproxen] 500 mg PO BID #10 tablet. Azithromycin [Zithromax] 250 mg PO DAILY #6 tab Instructions: COVID-19, Chest Wall Pain, [id number], Nonspecific Chest Pain, Adult, COVID-19: How to Protect Yourself and Others - CDC, Community-Acquired Pneumonia, Adult, Prevent the Spread of COVID-19 if You Are Sick - CDC Referrals: Danielle Vasquez MD [Physician] - 3 Days Forms: ED Department Discharge Additional Instructions: The need for follow-up, as well as the timing and circumstances, are variable depending upon the specifics of your emergency department visit. If you don't have a primary care physician on staff, we will provide you with a referral. We always advise you to contact your personal physician following an emergency department visit to inform them of the circumstance of the visit and for follow-up with them and/or the need for any referrals to a consulting specialist. The emergency department will also refer you to a specialist when appropriate. This referral assures that you have the opportunity for follow-up care with a specialist. All of these measure are taken in an effort to provide you with optimal care, which includes your follow-up. Under all circumstances we always encourage you to contact your private physician who remains a resource for coordinating your care. When calling for follow-up care, please make the office aware that this follow-up is from your recent emergency room visit. If for any reason you are refused follow-up, please contact the [facility] Emergency [facility]art[facility] nt at and asked to speak to the emergency department charge nurse. If you do not have a primary care doctor, please follow up with the clinics below within 3-5 days. [facility] - Primary Care [address] [place] [id number] [facility] [address] [place] [id number] Sepsis Event Note (ED) - Focused Exam Vital Signs: Vital Signs Temp Pulse Resp BP Pulse Ox 08/14/20 04:38 81 14 123/85 95 08/14/20 03:28 82 14 114/80 96 08/14/20 02:21 97.6 F 82 16 133/76 94 L - My Orders Last 24 Hours: My Active Orders 08/14/20 02:17 Cardiac Monitoring [RC] . DIRECTED Sodium Chloride 0.9% [Saline Flush] 10 ml FLUSH ASDIRECTED PRN Sodium Chloride 0.9% [Saline Flush] 2.5 ml FLUSH ASDIRECTED PRN Saline Lock Insert [OM.PC] Stat 08/14/20 02:18 EKG Documentation Completion [RC] STAT - Assessment/Plan Last 24 Hours: My Active Orders 08/14/20 02:17 Cardiac Monitoring [RC] . DIRECTED Sodium Chloride 0.9% [Saline Flush] 10 ml FLUSH ASDIRECTED PRN Sodium Chloride 0.9% [Saline Flush] 2.5 ml FLUSH ASDIRECTED PRN Saline Lock Insert [OM.PC] Stat 08/14/20 02:18 EKG Documentation Completion [RC] STAT
[2020-08-14] MEDS ORDERED: Ketorolac 30 MG/ML SDV IVPUSH ONE (02:24)
[2020-08-14 03:18] LABS: BLOOD UREA NITROGEN,BUN 3 mg/dL (7.0-18.0); CARBON DIOXIDE,CO2 27.3 mmol/L (21.0-32.0); CHLORIDE,CL 110 mmol/L (98-107); GLUCOSE RANDOM 100 mg/dL (74-106); POTASSIUM,K 3.7 mmol/L (3.5-5.1); SODIUM,NA 148 mmol/L (136-145)
[2020-08-14] MEDS ORDERED: Morphine 4 MG/ML Syringe IVPUSH ONE (03:28)
--- NOTE | 2020-08-14 03:52 | CR ---
INDICATION: Chest pain. TECHNIQUE: Portable chest x-ray. FINDINGS: Tubular shaped density overlying the right likely related to coronary artery calcification. Small nodular densities in the perihilar lungs either vessels on end or small granulomas. Tubular shaped density in the right upper lobe medially along the 1st anterior rib shadow either a prominent bronchovascular marking or a nodular opacity such as mucus plugging. Strand of linear atelectasis or scarring in the right lung base medially. No focal dense infiltrate or consolidation either lung. Small amount of opacity left lung base laterally may be related atelectasis. Heart size normal. Chest otherwise negative. Dictated by Tariq Gaytan MD @ Aug 14 2020 3:50AM Signed by Dr. Tariq Gaytan @ Aug 14 2020 3:51AM
[2020-08-14] MEDS ORDERED: Iopamidol 755 MG/ML 500 ML Multipack Bottle IVPUSH STA (04:03)
--- NOTE | 2020-08-14 04:28 | CT ---
INDICATION: Chest pain. COVID-19 positive. Elevated D-dimer. COMPARISON: Chest radiograph from earlier this evening. TECHNIQUE: CT examination of the chest was performed with the uneventful intravenous administration of 100 cc of Omnipaque 350 while 1 mm thick axial sections were obtained through the pulmonary arteries. Please note that all CT scans at this facility use dose modulation, iterative reconstruction, and/or weight-based dosing when appropriate to reduce radiation dose to as low as reasonably achievable. FINDINGS: : There is no sign of pulmonary embolism, with normal enhancement and branching of the pulmonary arteries. There are rounded infiltrates in the periphery of the posterior and lateral basilar segments of the left lower lobe, along with mild patchy ground-glass infiltrates throughout the inferior portions of both lower lobes. The findings are consistent with early stage COVID-19 infection. The rest of the chest is clear. There is no sign of mediastinal or hilar mass or adenopathy. The heart is normal in appearance for the patient`s age, as are the aorta and other ascending great vessels. There is no sign of supraclavicular or axillary mass or adenopathy. The visualized superior liver has a poorly defined area of low density in the inferior aspect of the medial segment of the left lobe of the liver, segment 4B, measuring 3.7 x 1.9 centimeters. This is worrisome for hepatic malignancy. Recommend correlation with MR of the liver with and without contrast. There is a well-circumscribed lateral subcapsular probable cyst measuring 2.5 centimeters in diameter in the lateral segment of the left lobe, segment 2. Another small low-density region seen nearby is probably a tiny cyst. The visualized superior spleen, pancreas, and right adrenal are normal in appearance. The osseous structures are normal in appearance for the patient`s age. IMPRESSION: No sign of pulmonary embolism. Rounded infiltrates in the posterior and lateral basilar segments of the left lower lobe, along with mild diffuse ground-glass infiltrates scattered throughout both lower lobes, findings consistent with early stage COVID-19 infection. Poorly defined area of low density in the inferior aspect of the medial segment of the left lobe of the liver, segment 4B, worrisome for hepatic malignancy. Recommend correlation with MRI of the liver with and without contrast. Please note that all CT scans at this facility use dose modulation, iterative reconstruction, and/or weight-based dosing when appropriate to reduce radiation dose to as low as reasonably achievable. Dictated by Lee Falk MD @ Aug 14 2020 4:20AM Signed by Dr. Lee Falk @ Aug 14 2020 4:28AM
== END 2020-08-14 05:25 | disposition home or self-care (01) ==
LOC: MW.ED 02:11
DX: U07.1 COVID-19 (principal); J12.89 Other viral pneumonia; R74.01 Elevation of levels of liver transaminase levels; R16.0 Hepatomegaly, not elsewhere classified; F10.129 Alcohol abuse with intoxication, unspecified; F41.9 Anxiety disorder, unspecified; F32.9 Major depressive disorder, single episode, unspecified; Y90.6 Blood alcohol level of 120-199 mg/100 ml; Z79.899 Other long term (current) drug therapy
CPT/HCPCS: 36415; 71045; 71275; 80053; 80307; 82728; 83880; 84484; 84703; 85025; 85379; 85610; 86140; 87635; 93005; 96374; 96375; 99285; J1885; J2270; Q9967; 93010; 99284; U0002